=== PATIENT | male | born 1965 | race Caucasian/White ===

== ENCOUNTER 2017-05-08 16:32 | Emergency (ER) | payer MEDICARE, MEDICAID ==
[~2017-05-08] VITALS: Ht 175.3 cm; Wt 72.7 kg
[2017-05-08] MEDS ORDERED: METO-323 PO (16:53)
[2017-05-08] MEDS ORDERED: CLON1 PO (16:53)
[2017-05-08] MEDS ORDERED: RANI150T7 PO (16:53)
[2017-05-08] MEDS ORDERED: TAMS0.4C32 PO (16:53)
[2017-05-08] MEDS ORDERED: LOVA20 PO (16:53)
[2017-05-08] MEDS ORDERED: OLAN7.5T2 PO (16:53)
[2017-05-08] MEDS ORDERED: ZOLP10 PO (16:53)
[2017-05-08] MEDS ORDERED: MONT10TA21 PO (16:53)
[2017-05-08] MEDS ORDERED: FINA5TAB41 PO (16:53)
[2017-05-08 17:41] LABS: BASOPHILS % (AUTO) 0.3 % (0.0-2.0); EOSINOPHILS % (AUTO) 0.9 % (1.0-6.0); HEMATOCRIT 49.9 % (41-53); HEMOGLOBIN 16.3 g/dL (13.5-17.5); LYMPHOCYTES # (AUTO) 1.1 K/uL (1.0-4.8); LYMPHOCYTES % (AUTO) 20.2 % (22.0-44.0); MEAN CORPUSCULAR HEMOGLOBIN 31.1 pg (26.0-34.0); MEAN CORPUSCULAR HGB CONC 32.7 G/dL (31.0-37.0); MEAN CORPUSCULAR VOLUME 95 fL (80-100); MONOCYTES # (AUTO) 0.5 K/uL (0.1-1.0); MONOCYTES % (AUTO) 9.4 % (2.0-9.0); NEUTROPHILS # (AUTO) 3.8 K/uL (1.8-7.7); NEUTROPHILS % (AUTO) 69.2 % (40.0-70.0); PLATELET COUNT (AUTO) 130 K/uL (150-450); RED BLOOD CELL COUNT(AUTO) 5.25 MIL/uL (4.50-5.90); RED CELL DISTRIBUTION WIDTH 14.7 % (11.5-14.5); WHITE BLOOD COUNT (AUTO) 5.5 K/uL (4.5-11.0)
[2017-05-08 17:48] LABS: ANION GAP 7 mmol/L (8-16); CALCIUM, TOTAL 9.7 mg/dL (8.8-10.5); CARBON DIOXIDE 31 mmol/L (22-29); CHLORIDE 106 mmol/L (98-107); CREATININE 1.35 mg/dL (0.60-1.30); GLOMERULAR FILTR. RATE CALC 56 mL/min (>60); POTASSIUM 4.7 mmol/L (3.5-5.1); SODIUM SERUM 144 mmol/L (136-145); UREA NITROGEN, BLOOD 7 mg/dL (7-18)
[2017-05-08 17:54] LABS: ALANINE AMINOTRANSFERASE 20 U/L (12-78); ALBUMIN 4.1 g/dL (3.4-5.0); ASPARTATE AMINOTRANSFERASE 18 U/L (15-37); BILIRUBIN,TOTAL 0.4 mg/dL (0.1-1.0); TOTAL PROTEIN, SERUM 7.5 g/dL (6.4-8.2)
[2017-05-08] MEDS ORDERED: LORazepam 2 MG TABLET PO ONE (19:45)
[2017-05-08] MEDS ORDERED: OLANZapine 5 MG TABLET PO ONE (19:45)
[2017-05-08] MEDS ORDERED: DiphenhydrAMINE HCL 25 MG CAPSULE PO ONE (19:45)
[2017-05-08 20:10] VITALS: BP 101/69
== END 2017-05-08 22:49 | disposition home or self-care (01) ==
LOC: EMS 16:34
DX: F91.8 Other conduct disorders (principal); F89 Unspecified disorder of psychological development; J45.909 Unspecified asthma, uncomplicated; I10 Essential (primary) hypertension; E78.00 Pure hypercholesterolemia, unspecified; K21.9 Gastro-esophageal reflux disease without esophagitis; F17.210 Nicotine dependence, cigarettes, uncomplicated; Z88.8 Allergy status to other drugs, medicaments and biological substances
CPT/HCPCS: 36415; 80053; 85025; 99284; G0480

== ENCOUNTER 2017-05-30 15:27 | Inpatient (IN) | payer MEDICARE, MEDICAID ==
[~2017-05-30] VITALS: Ht 172.7 cm; Wt 67.0 kg
[~2017-05-30 15:27] MED LIST: CLON1 PO; FINA5TAB41 PO; LOVA20 PO; METO25XL PO; MONT10TA21 PO; OLAN7.5T2 PO; RANI150T7 PO; TAMS0.4C32 PO; ZOLP10TA7 PO
[2017-05-30 16:51] LABS: BASOPHILS % (AUTO) 0.2 % (0.0-2.0); EOSINOPHILS % (AUTO) 1.7 % (1.0-6.0); HEMATOCRIT 43.2 % (41-53); HEMOGLOBIN 14.5 g/dL (13.5-17.5); LYMPHOCYTES # (AUTO) 1.1 K/uL (1.0-4.8); LYMPHOCYTES % (AUTO) 12.8 % (22.0-44.0); MEAN CORPUSCULAR HEMOGLOBIN 31.7 pg (26.0-34.0); MEAN CORPUSCULAR HGB CONC 33.7 G/dL (31.0-37.0); MEAN CORPUSCULAR VOLUME 94 fL (80-100); MONOCYTES # (AUTO) 0.6 K/uL (0.1-1.0); MONOCYTES % (AUTO) 7.1 % (2.0-9.0); NEUTROPHILS # (AUTO) 6.8 K/uL (1.8-7.7); NEUTROPHILS % (AUTO) 78.2 % (40.0-70.0); PLATELET COUNT (AUTO) 123 K/uL (150-450); RED BLOOD CELL COUNT(AUTO) 4.59 MIL/uL (4.50-5.90); RED CELL DISTRIBUTION WIDTH 14.7 % (11.5-14.5); WHITE BLOOD COUNT (AUTO) 8.6 K/uL (4.5-11.0)
[2017-05-30 17:00] LABS: ANION GAP 7 mmol/L (8-16); CALCIUM, TOTAL 8.6 mg/dL (8.8-10.5); CARBON DIOXIDE 28 mmol/L (22-29); CHLORIDE 109 mmol/L (98-107); CREATININE 1.05 mg/dL (0.60-1.30); GLOMERULAR FILTR. RATE CALC > 60 mL/min (>60); POTASSIUM 4.1 mmol/L (3.5-5.1); SODIUM SERUM 144 mmol/L (136-145); UREA NITROGEN, BLOOD 10 mg/dL (7-18)
[2017-05-30 17:06] LABS: ALANINE AMINOTRANSFERASE 15 U/L (12-78); ALBUMIN 3.3 g/dL (3.4-5.0); ASPARTATE AMINOTRANSFERASE 15 U/L (15-37); BILIRUBIN,TOTAL 0.4 mg/dL (0.1-1.0); TOTAL PROTEIN, SERUM 6.8 g/dL (6.4-8.2)
[2017-05-30] MEDS: OLANZapine 5 MG RAPDIS TABLET PO PRN (20:51)
[2017-05-30] MEDS: LORazepam 2 MG TABLET PO PRN (20:52)
[2017-05-30 21:49] VITALS: BP 123/77
[2017-05-31 08:15] VITALS: BP 108/65
[2017-05-31] MEDS: TAMSULOSIN HCL 0.4 MG CAPSULE PO SCH (08:47)
[2017-05-31] MEDS: FINASTERIDE 5 MG TABLET PO SCH (08:47)
[2017-05-31] MEDS: MONTELUKAST SODIUM 10 MG TABLET PO SCH (08:47)
[2017-05-31] MEDS: METOPROLOL SUCCINATE 25 MG ER TABLET PO SCH ×2 (08:47→16:34)
[2017-05-31] MEDS: RANITIDINE HCL 150 MG TABLET PO SCH ×2 (08:48→16:34)
[2017-05-31] MEDS: NICOTINE 21 MG/24 HOUR PATCH TD SCH (13:34)
[2017-05-31] MEDS: LOVASTATIN 20 MG TABLET PO SCH (16:34)
[2017-05-31 16:52] VITALS: BP 117/71
[2017-05-31] MEDS: DiphenhydrAMINE HCL 25 MG CAPSULE PO SCH (17:04)
[2017-05-31] MEDS: PALIPERIDONE 3 MG ER TABLET PO SCH (17:27)
[2017-06-01 01:38] VITALS: BP 113/62
[2017-06-01] MEDS: ZOLPIDEM TARTRATE 10 MG TABLET PO PRN (01:44)
[2017-06-01] MEDS: LORazepam 2 MG TABLET PO PRN (01:44)
[2017-06-01 08:15] VITALS: BP 118/68
[2017-06-01] MEDS: PALIPERIDONE 3 MG ER TABLET PO SCH ×2 (08:38→17:02)
[2017-06-01] MEDS: MONTELUKAST SODIUM 10 MG TABLET PO SCH (08:38)
[2017-06-01] MEDS: RANITIDINE HCL 150 MG TABLET PO SCH ×2 (08:39→17:02)
[2017-06-01] MEDS: FINASTERIDE 5 MG TABLET PO SCH (08:39)
[2017-06-01] MEDS: TAMSULOSIN HCL 0.4 MG CAPSULE PO SCH (08:39)
[2017-06-01] MEDS: DiphenhydrAMINE HCL 25 MG CAPSULE PO SCH ×2 (08:39→17:02)
[2017-06-01] MEDS: METOPROLOL SUCCINATE 25 MG ER TABLET PO SCH ×2 (08:39→17:02)
[2017-06-01] MEDS: NICOTINE 21 MG/24 HOUR PATCH TD SCH (08:39)
[2017-06-01] MEDS: LOVASTATIN 20 MG TABLET PO SCH (17:02)
[2017-06-01 17:43] VITALS: BP 133/89
[2017-06-02 05:15] VITALS: BP 118/76
[2017-06-02] MEDS: OLANZapine 5 MG RAPDIS TABLET PO PRN (05:36)
[2017-06-02] MEDS: DiphenhydrAMINE HCL 25 MG CAPSULE PO SCH ×2 (08:06→17:24)
[2017-06-02] MEDS: PALIPERIDONE 3 MG ER TABLET PO SCH (08:06)
[2017-06-02] MEDS: TAMSULOSIN HCL 0.4 MG CAPSULE PO SCH (08:06)
[2017-06-02] MEDS: NICOTINE 21 MG/24 HOUR PATCH TD SCH (08:07)
[2017-06-02] MEDS: FINASTERIDE 5 MG TABLET PO SCH (08:07)
[2017-06-02] MEDS: RANITIDINE HCL 150 MG TABLET PO SCH ×2 (08:07→17:25)
[2017-06-02] MEDS: METOPROLOL SUCCINATE 25 MG ER TABLET PO SCH ×2 (08:07→17:25)
[2017-06-02] MEDS: MONTELUKAST SODIUM 10 MG TABLET PO SCH (08:07)
[2017-06-02 08:40] VITALS: BP 118/87
[2017-06-02 16:41] VITALS: BP 98/68
[2017-06-02] MEDS: PALIPERIDONE 6 MG ER TABLET PO SCH (17:24)
[2017-06-02] MEDS: LOVASTATIN 20 MG TABLET PO SCH (17:26)
[2017-06-02] MEDS: LORazepam 2 MG TABLET PO PRN (18:13)
[2017-06-03 06:51] LABS: BASOPHILS % (AUTO) 0.5 % (0.0-2.0); EOSINOPHILS % (AUTO) 3.6 % (1.0-6.0); HEMATOCRIT 45.4 % (41-53); HEMOGLOBIN 15.4 g/dL (13.5-17.5); LYMPHOCYTES % (AUTO) 27.3 % (22.0-44.0); MEAN CORPUSCULAR HEMOGLOBIN 31.9 pg (26.0-34.0); MEAN CORPUSCULAR VOLUME 94 fL (80-100); MONOCYTES # (AUTO) 0.4 K/uL (0.1-1.0); MONOCYTES % (AUTO) 5.8 % (2.0-9.0); NEUTROPHILS # (AUTO) 4.7 K/uL (1.8-7.7); NEUTROPHILS % (AUTO) 62.8 % (40.0-70.0); PLATELET COUNT (AUTO) 148 K/uL (150-450); RED BLOOD CELL COUNT(AUTO) 4.83 MIL/uL (4.50-5.90); RED CELL DISTRIBUTION WIDTH 14.6 % (11.5-14.5); WHITE BLOOD COUNT (AUTO) 7.5 K/uL (4.5-11.0)
[2017-06-03 07:28] LABS: CHOL/HDL RATIO 4.1 (4.2-7.3); CREATINE KINASE, TOTAL 52 U/L (39-308)
[2017-06-03 08:05] LABS: HEMOGLOBIN A1C 5.9 % (4.5-6.2)
[2017-06-03] MEDS: FINASTERIDE 5 MG TABLET PO SCH (08:22)
[2017-06-03] MEDS: DiphenhydrAMINE HCL 25 MG CAPSULE PO SCH ×2 (08:22→16:43)
[2017-06-03] MEDS: TAMSULOSIN HCL 0.4 MG CAPSULE PO SCH (08:22)
[2017-06-03] MEDS: RANITIDINE HCL 150 MG TABLET PO SCH ×2 (08:22→16:43)
[2017-06-03] MEDS: PALIPERIDONE 6 MG ER TABLET PO SCH ×2 (08:22→16:43)
[2017-06-03] MEDS: MONTELUKAST SODIUM 10 MG TABLET PO SCH (08:23)
[2017-06-03 08:44] VITALS: BP 87/59
[2017-06-03] MEDS: NICOTINE 21 MG/24 HOUR PATCH TD SCH (09:00)
[2017-06-03 16:19] VITALS: BP 100/80
[2017-06-03] MEDS: LOVASTATIN 20 MG TABLET PO SCH (16:43)
[2017-06-04] MEDS: ZOLPIDEM TARTRATE 10 MG TABLET PO PRN (00:58)
[2017-06-04 06:31] LABS: HEPATITIS Bs ANTIGEN SCREEN P Negative (Negative); HEPATITIS C AB SCREEN 0.1 s/co ratio (0.0-0.9)
[2017-06-04] MEDS: FINASTERIDE 5 MG TABLET PO SCH (08:04)
[2017-06-04] MEDS: TAMSULOSIN HCL 0.4 MG CAPSULE PO SCH (08:04)
[2017-06-04] MEDS: NICOTINE 21 MG/24 HOUR PATCH TD SCH (08:04)
[2017-06-04] MEDS: PALIPERIDONE 6 MG ER TABLET PO SCH ×2 (08:04→16:26)
[2017-06-04] MEDS: MONTELUKAST SODIUM 10 MG TABLET PO SCH (08:04)
[2017-06-04] MEDS: DiphenhydrAMINE HCL 25 MG CAPSULE PO SCH ×2 (08:04→16:26)
[2017-06-04] MEDS: RANITIDINE HCL 150 MG TABLET PO SCH ×2 (08:04→16:26)
[2017-06-04 08:24] VITALS: BP 111/80
[2017-06-04] MEDS: LORazepam 2 MG TABLET PO PRN (14:35)
[2017-06-04] MEDS: LOVASTATIN 20 MG TABLET PO SCH (16:38)
[2017-06-04 20:23] VITALS: BP 106/62
[2017-06-05] MEDS: PALIPERIDONE 6 MG ER TABLET PO SCH ×2 (08:59→17:08)
[2017-06-05] MEDS: FINASTERIDE 5 MG TABLET PO SCH (08:59)
[2017-06-05] MEDS: DiphenhydrAMINE HCL 25 MG CAPSULE PO SCH ×2 (08:59→17:08)
[2017-06-05] MEDS: TAMSULOSIN HCL 0.4 MG CAPSULE PO SCH (09:00)
[2017-06-05] MEDS: BENZTROPINE MESYLATE 0.5 MG TABLET PO SCH ×2 (09:00→17:08)
[2017-06-05] MEDS: NICOTINE 21 MG/24 HOUR PATCH TD SCH (09:00)
[2017-06-05] MEDS: MONTELUKAST SODIUM 10 MG TABLET PO SCH (09:00)
[2017-06-05] MEDS: RANITIDINE HCL 150 MG TABLET PO SCH ×2 (09:00→17:08)
[2017-06-05 09:19] VITALS: BP 118/69
[2017-06-05 16:55] VITALS: BP 132/72
[2017-06-05] MEDS: LOVASTATIN 20 MG TABLET PO SCH (17:08)
[2017-06-06 08:24] VITALS: BP 116/66
[2017-06-06] MEDS: PALIPERIDONE 6 MG ER TABLET PO SCH ×2 (08:46→16:19)
[2017-06-06] MEDS: DiphenhydrAMINE HCL 25 MG CAPSULE PO SCH ×2 (08:46→16:19)
[2017-06-06] MEDS: TAMSULOSIN HCL 0.4 MG CAPSULE PO SCH (08:47)
[2017-06-06] MEDS: BENZTROPINE MESYLATE 0.5 MG TABLET PO SCH ×2 (08:47→16:19)
[2017-06-06] MEDS: FINASTERIDE 5 MG TABLET PO SCH (08:48)
[2017-06-06] MEDS: MONTELUKAST SODIUM 10 MG TABLET PO SCH (08:49)
[2017-06-06] MEDS: RANITIDINE HCL 150 MG TABLET PO SCH ×2 (08:49→16:19)
[2017-06-06] MEDS: NICOTINE 21 MG/24 HOUR PATCH TD SCH (08:55)
[2017-06-06] MEDS ORDERED: DiphenhydrAMINE HCL 50 MG/ML VIAL ONE (12:11)
[2017-06-06] MEDS ORDERED: LORazepam 2 MG/ML VIAL ONE (12:11)
[2017-06-06] MEDS ORDERED: DiphenhydrAMINE HCL 50 MG/ML VIAL IM ONE (12:30)
[2017-06-06] MEDS ORDERED: LORazepam 2 MG/ML VIAL IM ONE (12:30)
[2017-06-06] MEDS: LOVASTATIN 20 MG TABLET PO SCH (16:19)
[2017-06-06 17:12] VITALS: BP 104/84
[2017-06-07 08:23] VITALS: BP 110/62
[2017-06-07] MEDS: PALIPERIDONE 6 MG ER TABLET PO SCH ×2 (10:33→16:25)
[2017-06-07] MEDS: RANITIDINE HCL 150 MG TABLET PO SCH ×2 (10:33→16:25)
[2017-06-07] MEDS: NICOTINE 21 MG/24 HOUR PATCH TD SCH (10:33)
[2017-06-07] MEDS: FINASTERIDE 5 MG TABLET PO SCH (10:34)
[2017-06-07] MEDS: TAMSULOSIN HCL 0.4 MG CAPSULE PO SCH (10:34)
[2017-06-07] MEDS: DiphenhydrAMINE HCL 25 MG CAPSULE PO SCH ×2 (10:34→16:25)
[2017-06-07] MEDS: MONTELUKAST SODIUM 10 MG TABLET PO SCH (10:34)
[2017-06-07] MEDS: LOVASTATIN 20 MG TABLET PO SCH (16:25)
[2017-06-07 20:00] VITALS: BP 104/74
[2017-06-08 08:20] VITALS: BP 109/71
[2017-06-08] MEDS: PALIPERIDONE 6 MG ER TABLET PO SCH ×2 (08:40→16:36)
[2017-06-08] MEDS: TAMSULOSIN HCL 0.4 MG CAPSULE PO SCH (08:40)
[2017-06-08] MEDS: FINASTERIDE 5 MG TABLET PO SCH (08:41)
[2017-06-08] MEDS: DiphenhydrAMINE HCL 25 MG CAPSULE PO SCH ×2 (08:41→16:36)
[2017-06-08] MEDS: MONTELUKAST SODIUM 10 MG TABLET PO SCH (08:41)
[2017-06-08] MEDS: RANITIDINE HCL 150 MG TABLET PO SCH ×2 (08:41→16:36)
[2017-06-08] MEDS: NICOTINE 21 MG/24 HOUR PATCH TD SCH (08:45)
[2017-06-08 16:25] VITALS: BP 113/79
[2017-06-08] MEDS: LOVASTATIN 20 MG TABLET PO SCH (16:36)
[2017-06-09 06:55] VITALS: BP 110/80
[2017-06-09 08:15] VITALS: BP 118/76
[2017-06-09] MEDS: PALIPERIDONE 6 MG ER TABLET PO SCH ×2 (08:36→16:18)
[2017-06-09] MEDS: DiphenhydrAMINE HCL 25 MG CAPSULE PO SCH ×2 (08:36→16:18)
[2017-06-09] MEDS: TAMSULOSIN HCL 0.4 MG CAPSULE PO SCH (08:36)
[2017-06-09] MEDS: FINASTERIDE 5 MG TABLET PO SCH (08:36)
[2017-06-09] MEDS: MONTELUKAST SODIUM 10 MG TABLET PO SCH (08:37)
[2017-06-09] MEDS: NICOTINE 21 MG/24 HOUR PATCH TD SCH (08:37)
[2017-06-09] MEDS: RANITIDINE HCL 150 MG TABLET PO SCH ×2 (08:37→16:18)
[2017-06-09] MEDS ORDERED: BISACODYL 5 MG EC TABLET PO PRN (12:30)
[2017-06-09] MEDS: LOVASTATIN 20 MG TABLET PO SCH (16:18)
[2017-06-09 17:18] VITALS: BP 148/84
[2017-06-10 02:54] VITALS: BP 143/89
[2017-06-10] MEDS: LORazepam 2 MG TABLET PO PRN ×2 (03:01→10:24)
[2017-06-10] MEDS: TAMSULOSIN HCL 0.4 MG CAPSULE PO SCH (09:20)
[2017-06-10] MEDS: FINASTERIDE 5 MG TABLET PO SCH (09:20)
[2017-06-10] MEDS: PALIPERIDONE 6 MG ER TABLET PO SCH ×2 (09:20→16:59)
[2017-06-10] MEDS: NICOTINE 21 MG/24 HOUR PATCH TD SCH (09:20)
[2017-06-10] MEDS: RANITIDINE HCL 150 MG TABLET PO SCH ×2 (09:20→16:59)
[2017-06-10] MEDS: DiphenhydrAMINE HCL 25 MG CAPSULE PO SCH ×2 (09:20→16:59)
[2017-06-10] MEDS: MONTELUKAST SODIUM 10 MG TABLET PO SCH (09:21)
[2017-06-10 09:29] VITALS: BP 122/81
[2017-06-10] MEDS: OLANZapine 5 MG RAPDIS TABLET PO PRN (10:25)
[2017-06-10 16:38] VITALS: BP 106/69
[2017-06-10] MEDS: LOVASTATIN 20 MG TABLET PO SCH (17:16)
[2017-06-11] MEDS: PALIPERIDONE 6 MG ER TABLET PO SCH ×2 (08:13→16:17)
[2017-06-11] MEDS: NICOTINE 21 MG/24 HOUR PATCH TD SCH (08:13)
[2017-06-11] MEDS: MONTELUKAST SODIUM 10 MG TABLET PO SCH (08:14)
[2017-06-11] MEDS: FINASTERIDE 5 MG TABLET PO SCH (08:14)
[2017-06-11] MEDS: TAMSULOSIN HCL 0.4 MG CAPSULE PO SCH (08:14)
[2017-06-11] MEDS: DiphenhydrAMINE HCL 25 MG CAPSULE PO SCH ×2 (08:14→16:17)
[2017-06-11] MEDS: RANITIDINE HCL 150 MG TABLET PO SCH ×2 (08:14→16:17)
[2017-06-11] MEDS ORDERED: PALIPERIDONE PALMITATE 234 MG/1.5 ML SYRINGE IM SCH (09:00)
[2017-06-11 10:47] VITALS: BP 116/64
[2017-06-11] MEDS ORDERED: BISMUTH SUBSALICYLATE 262 MG CHEWABLE TABLET CHEW PRN (11:00)
[2017-06-11] MEDS: LOVASTATIN 20 MG TABLET PO SCH (17:34)
[2017-06-11 19:43] VITALS: BP 115/76
[2017-06-11] MEDS: LORazepam 2 MG TABLET PO PRN (20:22)
[2017-06-12] MEDS ORDERED: DIPH25 PO (08:01)
[2017-06-12] MEDS ORDERED: PALI234D IM (08:02)
[2017-06-12] MEDS ORDERED: PALI6 PO (08:02)
[2017-06-12] MEDS: NICOTINE 21 MG/24 HOUR PATCH TD SCH (08:34)
[2017-06-12] MEDS: MONTELUKAST SODIUM 10 MG TABLET PO SCH (08:34)
[2017-06-12] MEDS: TAMSULOSIN HCL 0.4 MG CAPSULE PO SCH (08:34)
[2017-06-12] MEDS: DiphenhydrAMINE HCL 25 MG CAPSULE PO SCH ×2 (08:34→16:17)
[2017-06-12] MEDS: FINASTERIDE 5 MG TABLET PO SCH (08:34)
[2017-06-12] MEDS: RANITIDINE HCL 150 MG TABLET PO SCH ×2 (08:34→16:16)
[2017-06-12] MEDS: PALIPERIDONE 6 MG ER TABLET PO SCH ×2 (08:34→16:16)
[2017-06-12 09:44] VITALS: BP 102/69
[2017-06-12 18:19] VITALS: BP 118/84
[2017-06-12] MEDS: LOVASTATIN 20 MG TABLET PO SCH (19:40)
[2017-06-12] MEDS: LORazepam 2 MG TABLET PO PRN (21:26)
[2017-06-13 08:36] VITALS: BP 88/65
[2017-06-13] MEDS: MONTELUKAST SODIUM 10 MG TABLET PO SCH (09:26)
[2017-06-13] MEDS: LORazepam 2 MG TABLET PO PRN (09:26)
[2017-06-13] MEDS: PALIPERIDONE 6 MG ER TABLET PO SCH ×2 (09:26→17:17)
[2017-06-13] MEDS: DiphenhydrAMINE HCL 25 MG CAPSULE PO SCH ×2 (09:26→17:17)
[2017-06-13] MEDS: NICOTINE 21 MG/24 HOUR PATCH TD SCH (09:26)
[2017-06-13] MEDS: TAMSULOSIN HCL 0.4 MG CAPSULE PO SCH (09:26)
[2017-06-13] MEDS: RANITIDINE HCL 150 MG TABLET PO SCH ×2 (09:26→17:17)
[2017-06-13] MEDS: FINASTERIDE 5 MG TABLET PO SCH (09:26)
[2017-06-13] MEDS: OLANZapine 5 MG RAPDIS TABLET PO PRN (09:26)
[2017-06-13 17:00] VITALS: BP 98/59
[2017-06-13] MEDS: LOVASTATIN 20 MG TABLET PO SCH (17:35)
[2017-06-14] MEDS: FINASTERIDE 5 MG TABLET PO SCH (08:09)
[2017-06-14] MEDS: RANITIDINE HCL 150 MG TABLET PO SCH ×2 (08:09→17:00)
[2017-06-14] MEDS: DiphenhydrAMINE HCL 25 MG CAPSULE PO SCH ×2 (08:09→17:00)
[2017-06-14] MEDS: TAMSULOSIN HCL 0.4 MG CAPSULE PO SCH (08:09)
[2017-06-14] MEDS: PALIPERIDONE 6 MG ER TABLET PO SCH ×2 (08:09→17:00)
[2017-06-14] MEDS: MONTELUKAST SODIUM 10 MG TABLET PO SCH (08:09)
[2017-06-14 08:10] VITALS: BP 114/68
[2017-06-14] MEDS: NICOTINE 21 MG/24 HOUR PATCH TD SCH (08:17)
[2017-06-14] MEDS: LOVASTATIN 20 MG TABLET PO SCH (17:30)
[2017-06-14 18:40] VITALS: BP 123/84
[2017-06-15] MEDS: FINASTERIDE 5 MG TABLET PO SCH (08:12)
[2017-06-15] MEDS: PALIPERIDONE 6 MG ER TABLET PO SCH ×2 (08:12→17:23)
[2017-06-15] MEDS: RANITIDINE HCL 150 MG TABLET PO SCH ×2 (08:12→17:23)
[2017-06-15] MEDS: NICOTINE 21 MG/24 HOUR PATCH TD SCH (08:12)
[2017-06-15] MEDS: DiphenhydrAMINE HCL 25 MG CAPSULE PO SCH ×2 (08:12→17:31)
[2017-06-15] MEDS: TAMSULOSIN HCL 0.4 MG CAPSULE PO SCH (08:12)
[2017-06-15] MEDS: MONTELUKAST SODIUM 10 MG TABLET PO SCH (08:12)
[2017-06-15 08:40] VITALS: BP 134/92
[2017-06-15 16:39] VITALS: BP 123/87
[2017-06-15] MEDS: LOVASTATIN 20 MG TABLET PO SCH (17:23)
[2017-06-16] MEDS: TAMSULOSIN HCL 0.4 MG CAPSULE PO SCH (08:17)
[2017-06-16] MEDS: RANITIDINE HCL 150 MG TABLET PO SCH ×2 (08:17→17:51)
[2017-06-16] MEDS: NICOTINE 21 MG/24 HOUR PATCH TD SCH (08:17)
[2017-06-16] MEDS: PALIPERIDONE 6 MG ER TABLET PO SCH ×2 (08:17→17:51)
[2017-06-16] MEDS: DiphenhydrAMINE HCL 25 MG CAPSULE PO SCH ×2 (08:17→17:51)
[2017-06-16] MEDS: MONTELUKAST SODIUM 10 MG TABLET PO SCH (08:17)
[2017-06-16] MEDS: FINASTERIDE 5 MG TABLET PO SCH (08:17)
[2017-06-16 09:15] VITALS: BP 107/75
[2017-06-16 16:00] VITALS: BP 108/68
[2017-06-16] MEDS: LOVASTATIN 20 MG TABLET PO SCH (17:51)
[2017-06-17 08:00] VITALS: BP 99/60
[2017-06-17] MEDS: RANITIDINE HCL 150 MG TABLET PO SCH (08:04)
[2017-06-17] MEDS: TAMSULOSIN HCL 0.4 MG CAPSULE PO SCH (08:04)
[2017-06-17] MEDS: PALIPERIDONE 6 MG ER TABLET PO SCH (08:04)
[2017-06-17] MEDS: DiphenhydrAMINE HCL 25 MG CAPSULE PO SCH (08:04)
[2017-06-17] MEDS: MONTELUKAST SODIUM 10 MG TABLET PO SCH (08:05)
[2017-06-17] MEDS: FINASTERIDE 5 MG TABLET PO SCH (08:05)
[2017-06-17] MEDS: NICOTINE 21 MG/24 HOUR PATCH TD SCH (08:05)
[2017-06-18] MEDS ORDERED: PANTOPRAZOLE SODIUM 40 MG DR TABLET PO SCH (09:00)
== END 2017-06-17 13:45 | disposition home or self-care (01) | DRG 885 ==
LOC: EMS 15:29 → 3EX 20:00
PROVIDERS: ADMIT Psychiatry & Neurology Psychiatry; ATTEND Psychiatry & Neurology Psychiatry
DX: F20.0 Paranoid schizophrenia (principal); D69.6 Thrombocytopenia, unspecified; E78.5 Hyperlipidemia, unspecified; F17.200 Nicotine dependence, unspecified, uncomplicated; F32.9 Major depressive disorder, single episode, unspecified; I10 Essential (primary) hypertension; J44.9 Chronic obstructive pulmonary disease, unspecified; K21.9 Gastro-esophageal reflux disease without esophagitis; K27.9 Peptic ulcer, site unspecified, unspecified as acute or chronic, without hemorrhage or perforation; K59.00 Constipation, unspecified; N40.0 Benign prostatic hyperplasia without lower urinary tract symptoms; R63.1 Polydipsia; Z87.11 Personal history of peptic ulcer disease; Z91.19 Patient's noncompliance with other medical treatment and regimen; Z88.8 Allergy status to other drugs, medicaments and biological substances
CPT/HCPCS: 80074; 82306; 82607; 82746; 83036; 83735; 84439; 99285; G0480; J1200; J2060; J3230

== ENCOUNTER 2017-06-17 16:03 | Emergency (ER) | payer MEDICARE, MEDICAID ==
[~2017-06-17] VITALS: Ht 175.3 cm; Wt 47.0 kg
[~2017-06-17 16:03] MED LIST changes: -CLON1 PO; +DIPH25 PO; -METO25XL PO; -OLAN7.5T2 PO; +PALI234D IM; +PALI6 PO; -ZOLP10TA7 PO
[2017-06-17 16:30] VITALS: BP 119/85
== END 2017-06-17 18:54 | disposition home or self-care (01) ==
LOC: EMS 16:05
DX: R42 Dizziness and giddiness (principal); J45.909 Unspecified asthma, uncomplicated; K21.9 Gastro-esophageal reflux disease without esophagitis; E78.00 Pure hypercholesterolemia, unspecified; I10 Essential (primary) hypertension; F17.210 Nicotine dependence, cigarettes, uncomplicated; Z88.8 Allergy status to other drugs, medicaments and biological substances; Z02.89 Encounter for other administrative examinations
CPT/HCPCS: 99283

== ENCOUNTER 2017-06-18 09:41 | Inpatient (IN) | payer MEDICARE, MEDICAID ==
[~2017-06-18] VITALS: Ht 175.3 cm; Wt 67.7 kg
[2017-06-18 10:56] LABS: BASOPHILS % (AUTO) 0.4 % (0.0-2.0); EOSINOPHILS % (AUTO) 0.2 % (1.0-6.0); HEMATOCRIT 46.3 % (41-53); HEMOGLOBIN 15.7 g/dL (13.5-17.5); LYMPHOCYTES % (AUTO) 10.7 % (22.0-44.0); MEAN CORPUSCULAR HEMOGLOBIN 31.5 pg (26.0-34.0); MEAN CORPUSCULAR HGB CONC 33.9 G/dL (31.0-37.0); MEAN CORPUSCULAR VOLUME 93 fL (80-100); MONOCYTES # (AUTO) 0.5 K/uL (0.1-1.0); MONOCYTES % (AUTO) 5.8 % (2.0-9.0); NEUTROPHILS # (AUTO) 7.5 K/uL (1.8-7.7); NEUTROPHILS % (AUTO) 82.9 % (40.0-70.0); PLATELET COUNT (AUTO) 159 K/uL (150-450); RED BLOOD CELL COUNT(AUTO) 4.99 MIL/uL (4.50-5.90); RED CELL DISTRIBUTION WIDTH 14.4 % (11.5-14.5)
[2017-06-18 11:07] LABS: ANION GAP 8 mmol/L (8-16); CALCIUM, TOTAL 9.2 mg/dL (8.8-10.5); CARBON DIOXIDE 30 mmol/L (22-29); CHLORIDE 102 mmol/L (98-107); GLOMERULAR FILTR. RATE CALC > 60 mL/min (>60); GLUCOSE,RANDOM 89 mg/dL (70-110); POTASSIUM 3.8 mmol/L (3.5-5.1); SODIUM SERUM 140 mmol/L (136-145); UREA NITROGEN, BLOOD 15 mg/dL (7-18)
[2017-06-18 11:13] LABS: ALANINE AMINOTRANSFERASE 36 U/L (12-78); ALKALINE PHOSPHATASE 115 U/L (46-116); ASPARTATE AMINOTRANSFERASE 81 U/L (15-37); BILIRUBIN,TOTAL 0.9 mg/dL (0.1-1.0); TOTAL PROTEIN, SERUM 7.7 g/dL (6.4-8.2)
[2017-06-18 11:55] LABS: THYROID STIMULATING HORMONE 1.71 uIU/mL (0.36-3.74)
[2017-06-18] MEDS ORDERED: BENZTROPINE MESYLATE 1 MG/ML 2 ML VIAL IM ONE (12:00)
[2017-06-18 13:49] LABS: AMPHET/METH SCREEN,URINE NEGATIVE (NEGATIVE); BARBITURATE SCREEN, URINE NEGATIVE (NEGATIVE); BENZODIAZEPINES SCREEN,URINE NEGATIVE (NEGATIVE); CANNABINOID SCREEN,URINE NEGATIVE (NEGATIVE); COCAINE SCREEN,URINE NEGATIVE (NEGATIVE); METHADONE SCREEN, URINE NEGATIVE (NEGATIVE); OPIATE SCREEN,URINE NEGATIVE (NEGATIVE)
[2017-06-18 13:52] LABS: PHENCYCLIDINE SCREEN,URINE NEGATIVE (NEGATIVE)
[2017-06-18 14:19] LABS: APPEARANCE,URINE CLEAR (CLEAR); BILIRUBIN,URINE NEGATIVE (NEGATIVE); GLUCOSE, URINE (UA) NEGATIVE (NEGATIVE); KETONES,URINE 40 mg/dL (NEGATIVE); LEUKOCYTE ESTERASE ,URINE NEGATIVE (NEGATIVE); NITRATE,URINE NEGATIVE (NEGATIVE); OCCULT BLOOD,URINE NEGATIVE (NEGATIVE); PROTEIN,URINE NEGATIVE (NEGATIVE); UROBILINOGEN,URINE 0.2 mg/dL (<=1.0)
[2017-06-18] MEDS: DiphenhydrAMINE HCL 25 MG CAPSULE PO SCH (16:14)
[2017-06-18] MEDS ORDERED: DiphenhydrAMINE HCL 25 MG CAPSULE PO ONE (17:45)
[2017-06-18] MEDS ORDERED: HALOPERIDOL 10 MG TABLET PO ONE (17:45)
[2017-06-18] MEDS: OLANZapine 5 MG RAPDIS TABLET PO PRN (17:56)
[2017-06-18] MEDS ORDERED: PNEUMOCOCCAL VACCINE POLYVALENT 0.5 ML VIAL [PPSV23] IM ONE (19:30)
[2017-06-18] MEDS: PALIPERIDONE 6 MG ER TABLET PO SCH (20:54)
[2017-06-18 21:41] VITALS: BP 127/70
[2017-06-19 06:55] VITALS: BP 105/71
[2017-06-19] MEDS: DiphenhydrAMINE HCL 25 MG CAPSULE PO SCH ×2 (08:15→16:37)
[2017-06-19] MEDS: PALIPERIDONE 6 MG ER TABLET PO SCH ×2 (08:15→21:04)
[2017-06-19 10:37] VITALS: BP 103/68
[2017-06-19 16:04] VITALS: BP 113/70
[2017-06-19] MEDS: RANITIDINE HCL 150 MG TABLET PO SCH (16:37)
[2017-06-19] MEDS: LOVASTATIN 20 MG TABLET PO SCH (21:04)
[2017-06-19 23:50] VITALS: BP 102/62
[2017-06-19] MEDS: LORazepam 2 MG TABLET PO PRN (23:55)
[2017-06-19] MEDS: ZOLPIDEM TARTRATE 10 MG TABLET PO PRN (23:55)
[2017-06-20] MEDS: RANITIDINE HCL 150 MG TABLET PO SCH ×2 (08:44→17:08)
[2017-06-20] MEDS: LORazepam 2 MG TABLET PO PRN (08:44)
[2017-06-20] MEDS: TAMSULOSIN HCL 0.4 MG CAPSULE PO SCH (08:44)
[2017-06-20] MEDS: OLANZapine 5 MG RAPDIS TABLET PO PRN (08:44)
[2017-06-20] MEDS: FINASTERIDE 5 MG TABLET PO SCH (08:45)
[2017-06-20] MEDS: MONTELUKAST SODIUM 10 MG TABLET PO SCH (08:45)
[2017-06-20] MEDS: DiphenhydrAMINE HCL 25 MG CAPSULE PO SCH ×2 (08:46→17:08)
[2017-06-20] MEDS: PALIPERIDONE 6 MG ER TABLET PO SCH ×2 (09:24→20:28)
[2017-06-20 11:05] VITALS: BP 110/70
[2017-06-20 18:37] VITALS: BP 115/75
[2017-06-20] MEDS ORDERED: INSULIN ASPART 100 UNITS/ML SQ ONE (18:55)
[2017-06-20] MEDS: LOVASTATIN 20 MG TABLET PO SCH (20:28)
[2017-06-21 05:09] VITALS: BP 122/78
[2017-06-21] MEDS: DiphenhydrAMINE HCL 25 MG CAPSULE PO SCH ×2 (09:13→16:39)
[2017-06-21] MEDS: TAMSULOSIN HCL 0.4 MG CAPSULE PO SCH (09:13)
[2017-06-21] MEDS: PALIPERIDONE 6 MG ER TABLET PO SCH ×2 (09:13→21:22)
[2017-06-21] MEDS: RANITIDINE HCL 150 MG TABLET PO SCH ×2 (09:13→16:39)
[2017-06-21] MEDS: MONTELUKAST SODIUM 10 MG TABLET PO SCH (09:13)
[2017-06-21] MEDS: FINASTERIDE 5 MG TABLET PO SCH (09:13)
[2017-06-21 10:44] VITALS: BP 112/60
[2017-06-21] MEDS: OLANZapine 5 MG RAPDIS TABLET PO PRN (13:54)
[2017-06-21] MEDS: LORazepam 2 MG TABLET PO PRN (13:54)
[2017-06-21 16:06] VITALS: BP 110/74
[2017-06-21] MEDS: LOVASTATIN 20 MG TABLET PO SCH (21:22)
[2017-06-22 06:23] LABS: GLUCOMETER DEV NAME(LOC) 3EI B; GLUCOSE,POINT OF CARE 83 MG/DL (70-110)
[2017-06-22 06:43] LABS: BASOPHILS % (AUTO) 0.4 % (0.0-2.0); EOSINOPHILS % (AUTO) 3.6 % (1.0-6.0); HEMOGLOBIN 12.8 g/dL (13.5-17.5); LYMPHOCYTES # (AUTO) 1.6 K/uL (1.0-4.8); LYMPHOCYTES % (AUTO) 19.8 % (22.0-44.0); MEAN CORPUSCULAR HEMOGLOBIN 31.5 pg (26.0-34.0); MEAN CORPUSCULAR HGB CONC 33.6 G/dL (31.0-37.0); MEAN CORPUSCULAR VOLUME 94 fL (80-100); MONOCYTES # (AUTO) 0.4 K/uL (0.1-1.0); MONOCYTES % (AUTO) 5.2 % (2.0-9.0); NEUTROPHILS # (AUTO) 5.9 K/uL (1.8-7.7); PLATELET COUNT (AUTO) 124 K/uL (150-450); RED BLOOD CELL COUNT(AUTO) 4.06 MIL/uL (4.50-5.90); RED CELL DISTRIBUTION WIDTH 14.1 % (11.5-14.5)
[2017-06-22 06:48] LABS: ALANINE AMINOTRANSFERASE 26 U/L (12-78); ALBUMIN 3.1 g/dL (3.4-5.0); ALKALINE PHOSPHATASE 77 U/L (46-116); ANION GAP 5 mmol/L (8-16); ASPARTATE AMINOTRANSFERASE 33 U/L (15-37); BILIRUBIN,TOTAL 0.5 mg/dL (0.1-1.0); CALCIUM, TOTAL 8.8 mg/dL (8.8-10.5); CARBON DIOXIDE 30 mmol/L (22-29); CHLORIDE 106 mmol/L (98-107); CREATININE 0.89 mg/dL (0.60-1.30); GLOMERULAR FILTR. RATE CALC > 60 mL/min (>60); GLUCOSE,RANDOM 84 mg/dL (70-110); SODIUM SERUM 141 mmol/L (136-145); TOTAL PROTEIN, SERUM 6.1 g/dL (6.4-8.2); UREA NITROGEN, BLOOD 15 mg/dL (7-18)
[2017-06-22 06:59] LABS: VALPROIC ACID < 3 mcg/mL (50-100)
[2017-06-22 08:16] VITALS: BP 101/62
[2017-06-22] MEDS: TAMSULOSIN HCL 0.4 MG CAPSULE PO SCH (08:40)
[2017-06-22] MEDS: FINASTERIDE 5 MG TABLET PO SCH (08:41)
[2017-06-22] MEDS: DiphenhydrAMINE HCL 25 MG CAPSULE PO SCH ×2 (08:41→16:46)
[2017-06-22] MEDS: PALIPERIDONE 6 MG ER TABLET PO SCH ×2 (08:41→20:58)
[2017-06-22] MEDS: RANITIDINE HCL 150 MG TABLET PO SCH ×2 (08:41→16:46)
[2017-06-22] MEDS: MONTELUKAST SODIUM 10 MG TABLET PO SCH (08:41)
[2017-06-22 16:03] VITALS: BP 112/78
[2017-06-22] MEDS: LOVASTATIN 20 MG TABLET PO SCH (20:58)
[2017-06-23] MEDS: FINASTERIDE 5 MG TABLET PO SCH (08:04)
[2017-06-23] MEDS: MONTELUKAST SODIUM 10 MG TABLET PO SCH (08:04)
[2017-06-23] MEDS: PALIPERIDONE 6 MG ER TABLET PO SCH ×2 (08:04→21:27)
[2017-06-23] MEDS: RANITIDINE HCL 150 MG TABLET PO SCH ×2 (08:04→17:38)
[2017-06-23] MEDS: TAMSULOSIN HCL 0.4 MG CAPSULE PO SCH (08:04)
[2017-06-23] MEDS: DiphenhydrAMINE HCL 25 MG CAPSULE PO SCH ×2 (08:04→17:38)
[2017-06-23 08:10] VITALS: BP 144/88
[2017-06-23] MEDS: OLANZapine 5 MG RAPDIS TABLET PO PRN (08:38)
[2017-06-23] MEDS: LORazepam 2 MG TABLET PO PRN (08:38)
[2017-06-23 10:08] LABS: CREATINE KINASE, TOTAL 226 U/L (39-308)
[2017-06-23 10:13] LABS: CREATINE KINASE MB < 0.5 ng/mL (0-5)
[2017-06-23 16:00] VITALS: BP 129/78
[2017-06-23] MEDS: LOVASTATIN 20 MG TABLET PO SCH (21:27)
[2017-06-24 08:05] VITALS: BP 102/59
[2017-06-24] MEDS: MONTELUKAST SODIUM 10 MG TABLET PO SCH (09:53)
[2017-06-24] MEDS: PALIPERIDONE 6 MG ER TABLET PO SCH ×2 (09:53→20:37)
[2017-06-24] MEDS: RANITIDINE HCL 150 MG TABLET PO SCH ×2 (09:54→16:29)
[2017-06-24] MEDS: FINASTERIDE 5 MG TABLET PO SCH (09:54)
[2017-06-24] MEDS: DiphenhydrAMINE HCL 25 MG CAPSULE PO SCH ×2 (09:54→16:29)
[2017-06-24] MEDS: TAMSULOSIN HCL 0.4 MG CAPSULE PO SCH (09:54)
[2017-06-24 16:13] VITALS: BP 105/68
[2017-06-24] MEDS: LORazepam 2 MG TABLET PO PRN (17:12)
[2017-06-24] MEDS: LOVASTATIN 20 MG TABLET PO SCH (20:37)
[2017-06-24] MEDS: ZOLPIDEM TARTRATE 10 MG TABLET PO PRN (20:38)
[2017-06-25] MEDS ORDERED: ALBUTEROL SULFATE HFA 90 MCG/PUFF 8 GM INHALER IH PRN (08:30)
[2017-06-25] MEDS: FINASTERIDE 5 MG TABLET PO SCH (08:40)
[2017-06-25] MEDS: TAMSULOSIN HCL 0.4 MG CAPSULE PO SCH (08:40)
[2017-06-25] MEDS: MONTELUKAST SODIUM 10 MG TABLET PO SCH (08:40)
[2017-06-25] MEDS: DiphenhydrAMINE HCL 25 MG CAPSULE PO SCH ×2 (08:40→16:26)
[2017-06-25] MEDS: RANITIDINE HCL 150 MG TABLET PO SCH ×2 (08:40→16:26)
[2017-06-25] MEDS: PALIPERIDONE 6 MG ER TABLET PO SCH ×2 (08:40→20:11)
[2017-06-25 10:27] VITALS: BP 121/75
[2017-06-25 16:15] VITALS: BP 115/76
[2017-06-25] MEDS: OLANZapine 5 MG RAPDIS TABLET PO PRN (16:26)
[2017-06-25] MEDS: DIVALPROEX SODIUM 500 MG DR TABLET PO SCH (17:30)
[2017-06-25] MEDS: ZOLPIDEM TARTRATE 10 MG TABLET PO PRN (20:11)
[2017-06-25] MEDS: LOVASTATIN 20 MG TABLET PO SCH (20:11)
[2017-06-26] MEDS: TAMSULOSIN HCL 0.4 MG CAPSULE PO SCH (09:00)
[2017-06-26] MEDS: FINASTERIDE 5 MG TABLET PO SCH (09:00)
[2017-06-26] MEDS: DiphenhydrAMINE HCL 25 MG CAPSULE PO SCH ×2 (09:00→16:31)
[2017-06-26] MEDS: MONTELUKAST SODIUM 10 MG TABLET PO SCH (09:00)
[2017-06-26] MEDS: PALIPERIDONE 6 MG ER TABLET PO SCH ×2 (09:00→20:25)
[2017-06-26] MEDS: RANITIDINE HCL 150 MG TABLET PO SCH ×2 (09:00→16:31)
[2017-06-26] MEDS: DIVALPROEX SODIUM 500 MG DR TABLET PO SCH ×2 (09:00→16:30)
[2017-06-26 12:52] VITALS: BP 110/67
[2017-06-26 16:02] VITALS: BP 115/74
[2017-06-26] MEDS: OLANZapine 5 MG RAPDIS TABLET PO PRN (16:31)
[2017-06-26] MEDS: LOVASTATIN 20 MG TABLET PO SCH (20:25)
[2017-06-26] MEDS: ZOLPIDEM TARTRATE 10 MG TABLET PO PRN (20:26)
[2017-06-27 05:55] VITALS: BP 118/78
[2017-06-27 08:15] VITALS: BP 115/76
[2017-06-27] MEDS: TAMSULOSIN HCL 0.4 MG CAPSULE PO SCH (09:15)
[2017-06-27] MEDS: DiphenhydrAMINE HCL 25 MG CAPSULE PO SCH ×2 (09:15→16:17)
[2017-06-27] MEDS: MONTELUKAST SODIUM 10 MG TABLET PO SCH (09:15)
[2017-06-27] MEDS: RANITIDINE HCL 150 MG TABLET PO SCH ×2 (09:15→16:17)
[2017-06-27] MEDS: DIVALPROEX SODIUM 500 MG DR TABLET PO SCH ×2 (09:15→16:17)
[2017-06-27] MEDS: FINASTERIDE 5 MG TABLET PO SCH (09:15)
[2017-06-27] MEDS: PALIPERIDONE 6 MG ER TABLET PO SCH ×2 (09:15→20:21)
[2017-06-27] MEDS: OLANZapine 5 MG RAPDIS TABLET PO PRN (16:17)
[2017-06-27 16:48] VITALS: BP 112/75
[2017-06-27] MEDS: LOVASTATIN 20 MG TABLET PO SCH (20:21)
[2017-06-27] MEDS: ZOLPIDEM TARTRATE 10 MG TABLET PO PRN (20:22)
[2017-06-28] MEDS: LORazepam 2 MG TABLET PO PRN (00:27)
[2017-06-28 00:41] VITALS: BP 124/86
[2017-06-28 08:07] VITALS: BP 119/76
[2017-06-28] MEDS: TAMSULOSIN HCL 0.4 MG CAPSULE PO SCH (08:14)
[2017-06-28] MEDS: DiphenhydrAMINE HCL 25 MG CAPSULE PO SCH ×2 (08:14→17:04)
[2017-06-28] MEDS: FINASTERIDE 5 MG TABLET PO SCH (08:14)
[2017-06-28] MEDS: RANITIDINE HCL 150 MG TABLET PO SCH ×2 (08:14→17:04)
[2017-06-28] MEDS: PALIPERIDONE 6 MG ER TABLET PO SCH ×2 (08:14→20:14)
[2017-06-28] MEDS: MONTELUKAST SODIUM 10 MG TABLET PO SCH (08:14)
[2017-06-28] MEDS: DIVALPROEX SODIUM 500 MG DR TABLET PO SCH ×2 (08:14→17:04)
[2017-06-28 16:29] VITALS: BP 125/79
[2017-06-28] MEDS: LOVASTATIN 20 MG TABLET PO SCH (20:14)
[2017-06-28] MEDS: ZOLPIDEM TARTRATE 10 MG TABLET PO PRN (22:21)
[2017-06-29 06:07] VITALS: BP 106/76
[2017-06-29 06:23] LABS: BASOPHILS % (AUTO) 0.6 % (0.0-2.0); EOSINOPHILS % (AUTO) 3.5 % (1.0-6.0); HEMATOCRIT 41.4 % (41-53); HEMOGLOBIN 13.8 g/dL (13.5-17.5); LYMPHOCYTES # (AUTO) 2.1 K/uL (1.0-4.8); LYMPHOCYTES % (AUTO) 24.8 % (22.0-44.0); MEAN CORPUSCULAR HEMOGLOBIN 31.6 pg (26.0-34.0); MEAN CORPUSCULAR HGB CONC 33.4 G/dL (31.0-37.0); MEAN CORPUSCULAR VOLUME 95 fL (80-100); MONOCYTES # (AUTO) 0.6 K/uL (0.1-1.0); MONOCYTES % (AUTO) 7.1 % (2.0-9.0); NEUTROPHILS # (AUTO) 5.4 K/uL (1.8-7.7); PLATELET COUNT (AUTO) 147 K/uL (150-450); RED BLOOD CELL COUNT(AUTO) 4.36 MIL/uL (4.50-5.90); RED CELL DISTRIBUTION WIDTH 14.5 % (11.5-14.5)
[2017-06-29 07:03] LABS: ALANINE AMINOTRANSFERASE 20 U/L (12-78); ALBUMIN 3.2 g/dL (3.4-5.0); ALKALINE PHOSPHATASE 81 U/L (46-116); ANION GAP 10 mmol/L (8-16); ASPARTATE AMINOTRANSFERASE 14 U/L (15-37); BILIRUBIN,TOTAL 0.4 mg/dL (0.1-1.0); CALCIUM, TOTAL 9.2 mg/dL (8.8-10.5); CARBON DIOXIDE 32 mmol/L (22-29); CHLORIDE 106 mmol/L (98-107); CREATININE 1.09 mg/dL (0.60-1.30); GLOMERULAR FILTR. RATE CALC > 60 mL/min (>60); GLUCOSE,RANDOM 79 mg/dL (70-110); POTASSIUM 4.1 mmol/L (3.5-5.1); SODIUM SERUM 148 mmol/L (136-145); TOTAL PROTEIN, SERUM 6.4 g/dL (6.4-8.2); UREA NITROGEN, BLOOD 19 mg/dL (7-18); VALPROIC ACID 71 mcg/mL (50-100)
[2017-06-29] MEDS: MONTELUKAST SODIUM 10 MG TABLET PO SCH (08:05)
[2017-06-29] MEDS: TAMSULOSIN HCL 0.4 MG CAPSULE PO SCH (08:06)
[2017-06-29] MEDS: FINASTERIDE 5 MG TABLET PO SCH (08:06)
[2017-06-29] MEDS: DIVALPROEX SODIUM 500 MG DR TABLET PO SCH ×2 (08:06→21:38)
[2017-06-29] MEDS: RANITIDINE HCL 150 MG TABLET PO SCH ×2 (08:06→21:38)
[2017-06-29] MEDS: PALIPERIDONE 6 MG ER TABLET PO SCH ×2 (08:06→21:38)
[2017-06-29] MEDS: DiphenhydrAMINE HCL 25 MG CAPSULE PO SCH ×2 (08:06→21:38)
[2017-06-29 08:29] VITALS: BP 103/66
[2017-06-29 18:50] VITALS: BP 113/67
[2017-06-29] MEDS: LOVASTATIN 20 MG TABLET PO SCH (23:03)
[2017-06-30] MEDS: DIVALPROEX SODIUM 500 MG DR TABLET PO SCH ×2 (08:10→16:35)
[2017-06-30] MEDS: PALIPERIDONE 6 MG ER TABLET PO SCH ×2 (08:10→20:49)
[2017-06-30] MEDS: DiphenhydrAMINE HCL 25 MG CAPSULE PO SCH ×2 (08:11→16:36)
[2017-06-30] MEDS: FINASTERIDE 5 MG TABLET PO SCH (08:11)
[2017-06-30] MEDS: RANITIDINE HCL 150 MG TABLET PO SCH ×2 (08:11→16:35)
[2017-06-30] MEDS: MONTELUKAST SODIUM 10 MG TABLET PO SCH (08:11)
[2017-06-30] MEDS: TAMSULOSIN HCL 0.4 MG CAPSULE PO SCH (08:11)
[2017-06-30 10:29] VITALS: BP 114/68
[2017-06-30 16:36] VITALS: BP 100/65
[2017-06-30] MEDS: LORazepam 2 MG TABLET PO PRN (18:10)
[2017-06-30] MEDS: LOVASTATIN 20 MG TABLET PO SCH (20:49)
[2017-07-01] MEDS: DIVALPROEX SODIUM 500 MG DR TABLET PO SCH ×2 (09:04→15:59)
[2017-07-01] MEDS: DiphenhydrAMINE HCL 25 MG CAPSULE PO SCH ×2 (09:04→15:59)
[2017-07-01] MEDS: FINASTERIDE 5 MG TABLET PO SCH (09:04)
[2017-07-01] MEDS: TAMSULOSIN HCL 0.4 MG CAPSULE PO SCH (09:04)
[2017-07-01] MEDS: MONTELUKAST SODIUM 10 MG TABLET PO SCH (09:05)
[2017-07-01] MEDS: PALIPERIDONE 6 MG ER TABLET PO SCH ×2 (09:05→20:55)
[2017-07-01] MEDS: RANITIDINE HCL 150 MG TABLET PO SCH ×2 (09:05→15:59)
[2017-07-01 09:59] VITALS: BP 102/61
[2017-07-01 16:40] VITALS: BP 114/69
[2017-07-01] MEDS: LOVASTATIN 20 MG TABLET PO SCH (20:55)
[2017-07-02 00:37] VITALS: BP 112/63
[2017-07-02] MEDS: ZOLPIDEM TARTRATE 10 MG TABLET PO PRN ×2 (00:37→22:33)
[2017-07-02] MEDS: PALIPERIDONE 6 MG ER TABLET PO SCH ×2 (08:08→19:59)
[2017-07-02] MEDS: DiphenhydrAMINE HCL 25 MG CAPSULE PO SCH ×2 (08:09→15:51)
[2017-07-02] MEDS: DIVALPROEX SODIUM 500 MG DR TABLET PO SCH ×2 (08:09→17:04)
[2017-07-02] MEDS: FINASTERIDE 5 MG TABLET PO SCH (08:09)
[2017-07-02] MEDS: MONTELUKAST SODIUM 10 MG TABLET PO SCH (08:09)
[2017-07-02] MEDS: TAMSULOSIN HCL 0.4 MG CAPSULE PO SCH (08:09)
[2017-07-02] MEDS: RANITIDINE HCL 150 MG TABLET PO SCH ×2 (08:09→15:51)
[2017-07-02 12:25] VITALS: BP 115/68
[2017-07-02 17:00] VITALS: BP 98/64
[2017-07-02] MEDS: LOVASTATIN 20 MG TABLET PO SCH (19:59)
[2017-07-03 05:32] VITALS: BP 93/69
[2017-07-03] MEDS: FINASTERIDE 5 MG TABLET PO SCH (08:17)
[2017-07-03] MEDS: PALIPERIDONE 6 MG ER TABLET PO SCH ×2 (08:17→20:26)
[2017-07-03] MEDS: TAMSULOSIN HCL 0.4 MG CAPSULE PO SCH (08:17)
[2017-07-03] MEDS: SERTRALINE HCL 50 MG TABLET PO SCH (08:17)
[2017-07-03] MEDS: RANITIDINE HCL 150 MG TABLET PO SCH ×2 (08:17→17:09)
[2017-07-03] MEDS: DiphenhydrAMINE HCL 25 MG CAPSULE PO SCH ×2 (08:18→17:09)
[2017-07-03] MEDS: MONTELUKAST SODIUM 10 MG TABLET PO SCH (08:18)
[2017-07-03] MEDS: DIVALPROEX SODIUM 500 MG DR TABLET PO SCH ×2 (08:18→17:09)
[2017-07-03] MEDS: LORazepam 2 MG TABLET PO PRN (08:31)
[2017-07-03 13:20] VITALS: BP 113/64
[2017-07-03 16:35] VITALS: BP 129/73
[2017-07-03] MEDS: LOVASTATIN 20 MG TABLET PO SCH (20:26)
[2017-07-04 02:43] VITALS: BP 106/53
[2017-07-04 08:05] VITALS: BP 103/70
[2017-07-04] MEDS: DiphenhydrAMINE HCL 25 MG CAPSULE PO SCH ×2 (09:44→16:50)
[2017-07-04] MEDS: MONTELUKAST SODIUM 10 MG TABLET PO SCH (09:44)
[2017-07-04] MEDS: TAMSULOSIN HCL 0.4 MG CAPSULE PO SCH (09:44)
[2017-07-04] MEDS: RANITIDINE HCL 150 MG TABLET PO SCH ×2 (09:44→16:50)
[2017-07-04] MEDS: SERTRALINE HCL 50 MG TABLET PO SCH (09:44)
[2017-07-04] MEDS: DIVALPROEX SODIUM 500 MG DR TABLET PO SCH ×2 (09:45→16:50)
[2017-07-04] MEDS: FINASTERIDE 5 MG TABLET PO SCH (09:45)
[2017-07-04] MEDS: PALIPERIDONE 6 MG ER TABLET PO SCH ×2 (09:45→20:23)
[2017-07-04 19:53] VITALS: BP 126/70
[2017-07-04] MEDS: LOVASTATIN 20 MG TABLET PO SCH (20:23)
[2017-07-05 03:40] VITALS: BP 119/77
[2017-07-05] MEDS: DiphenhydrAMINE HCL 25 MG CAPSULE PO SCH ×2 (08:02→16:06)
[2017-07-05] MEDS: FINASTERIDE 5 MG TABLET PO SCH (08:04)
[2017-07-05] MEDS: RANITIDINE HCL 150 MG TABLET PO SCH ×2 (08:04→16:06)
[2017-07-05] MEDS: PALIPERIDONE 6 MG ER TABLET PO SCH ×2 (08:04→20:18)
[2017-07-05] MEDS: SERTRALINE HCL 50 MG TABLET PO SCH (08:04)
[2017-07-05] MEDS: DIVALPROEX SODIUM 500 MG DR TABLET PO SCH ×2 (08:04→16:06)
[2017-07-05] MEDS: TAMSULOSIN HCL 0.4 MG CAPSULE PO SCH (08:04)
[2017-07-05] MEDS: MONTELUKAST SODIUM 10 MG TABLET PO SCH (08:04)
[2017-07-05 08:30] VITALS: BP 124/81
[2017-07-05 16:45] VITALS: BP 122/82
[2017-07-05] MEDS: LOVASTATIN 20 MG TABLET PO SCH (20:18)
[2017-07-06 02:39] VITALS: BP 110/75
[2017-07-06] MEDS: MONTELUKAST SODIUM 10 MG TABLET PO SCH (08:32)
[2017-07-06] MEDS: TAMSULOSIN HCL 0.4 MG CAPSULE PO SCH (08:32)
[2017-07-06] MEDS: SERTRALINE HCL 50 MG TABLET PO SCH (08:32)
[2017-07-06] MEDS: FINASTERIDE 5 MG TABLET PO SCH (08:33)
[2017-07-06] MEDS: DIVALPROEX SODIUM 500 MG DR TABLET PO SCH ×2 (08:33→16:37)
[2017-07-06] MEDS: DiphenhydrAMINE HCL 25 MG CAPSULE PO SCH ×2 (08:33→16:37)
[2017-07-06] MEDS: RANITIDINE HCL 150 MG TABLET PO SCH ×2 (08:33→16:37)
[2017-07-06] MEDS: PALIPERIDONE 6 MG ER TABLET PO SCH ×2 (08:33→20:13)
[2017-07-06 08:40] VITALS: BP 112/61
[2017-07-06] MEDS: LORazepam 2 MG TABLET PO PRN (17:00)
[2017-07-06] MEDS: LOVASTATIN 20 MG TABLET PO SCH (20:13)
[2017-07-06 20:51] VITALS: BP 100/62
[2017-07-07 03:46] VITALS: BP 104/68
[2017-07-07 06:35] LABS: BASOPHILS # (AUTO) 0.03 K/uL (0.00-0.20); BASOPHILS % (AUTO) 0.3 % (0.0-2.0); EOSINOPHILS # (AUTO) 0.19 K/uL (0.00-0.70); EOSINOPHILS % (AUTO) 1.95 % (1.0-6.0); HEMATOCRIT 43.9 % (41-53); HEMOGLOBIN 14.5 g/dL (13.5-17.5); LYMPHOCYTES # (AUTO) 1.8 K/uL (1.0-4.8); LYMPHOCYTES % (AUTO) 19.2 % (22.0-44.0); MEAN CORPUSCULAR VOLUME 94 fL (80-100); MONOCYTES # (AUTO) 0.7 K/uL (0.1-1.0); MONOCYTES % (AUTO) 7.1 % (2.0-9.0); NEUTROPHILS # (AUTO) 6.8 K/uL (1.8-7.7); NEUTROPHILS % (AUTO) 71.4 % (40.0-70.0); PLATELET COUNT (AUTO) 117 K/uL (150-450); RED BLOOD CELL COUNT(AUTO) 4.67 MIL/uL (4.50-5.90); RED CELL DISTRIBUTION WIDTH 14.7 % (11.5-14.5)
[2017-07-07 07:13] LABS: ALANINE AMINOTRANSFERASE 19 U/L (12-78); ALBUMIN 3.2 g/dL (3.4-5.0); ALKALINE PHOSPHATASE 81 U/L (46-116); ANION GAP 6 mmol/L (8-16); ASPARTATE AMINOTRANSFERASE 16 U/L (15-37); BILIRUBIN,TOTAL 0.4 mg/dL (0.1-1.0); CALCIUM, TOTAL 8.6 mg/dL (8.8-10.5); CARBON DIOXIDE 33 mmol/L (22-29); CHLORIDE 101 mmol/L (98-107); CREATINE KINASE, TOTAL 214 U/L (39-308); CREATININE 1.06 mg/dL (0.60-1.30); GLOMERULAR FILTR. RATE CALC > 60 mL/min (>60); GLUCOSE,RANDOM 70 mg/dL (70-110); POTASSIUM 3.9 mmol/L (3.5-5.1); SODIUM SERUM 140 mmol/L (136-145); TOTAL PROTEIN, SERUM 6.3 g/dL (6.4-8.2); UREA NITROGEN, BLOOD 26 mg/dL (7-18)
[2017-07-07 07:15] LABS: CREATINE KINASE MB < 0.5 ng/mL (0-5)
[2017-07-07 08:10] VITALS: BP 110/76
[2017-07-07] MEDS: FINASTERIDE 5 MG TABLET PO SCH (08:26)
[2017-07-07] MEDS: PALIPERIDONE 6 MG ER TABLET PO SCH ×2 (08:26→20:37)
[2017-07-07] MEDS: SERTRALINE HCL 50 MG TABLET PO SCH (08:26)
[2017-07-07] MEDS: RANITIDINE HCL 150 MG TABLET PO SCH ×2 (08:26→17:10)
[2017-07-07] MEDS: TAMSULOSIN HCL 0.4 MG CAPSULE PO SCH (08:26)
[2017-07-07] MEDS: DiphenhydrAMINE HCL 25 MG CAPSULE PO SCH ×2 (08:26→17:10)
[2017-07-07] MEDS: MONTELUKAST SODIUM 10 MG TABLET PO SCH (08:27)
[2017-07-07] MEDS: DIVALPROEX SODIUM 500 MG DR TABLET PO SCH ×2 (08:27→17:10)
[2017-07-07 17:00] VITALS: BP 115/80
[2017-07-07] MEDS: LOVASTATIN 20 MG TABLET PO SCH (20:38)
[2017-07-08 00:32] VITALS: BP 100/62
[2017-07-08] MEDS: ZOLPIDEM TARTRATE 10 MG TABLET PO PRN (00:39)
[2017-07-08] MEDS: DiphenhydrAMINE HCL 25 MG CAPSULE PO SCH ×2 (08:45→16:04)
[2017-07-08] MEDS: DIVALPROEX SODIUM 500 MG DR TABLET PO SCH ×2 (08:45→16:04)
[2017-07-08] MEDS: TAMSULOSIN HCL 0.4 MG CAPSULE PO SCH (08:46)
[2017-07-08] MEDS: PALIPERIDONE 6 MG ER TABLET PO SCH ×2 (08:46→20:17)
[2017-07-08] MEDS: SERTRALINE HCL 50 MG TABLET PO SCH (08:46)
[2017-07-08] MEDS: MONTELUKAST SODIUM 10 MG TABLET PO SCH (08:47)
[2017-07-08] MEDS: RANITIDINE HCL 150 MG TABLET PO SCH ×2 (08:47→16:03)
[2017-07-08] MEDS: FINASTERIDE 5 MG TABLET PO SCH (08:48)
[2017-07-08 09:00] VITALS: BP 105/61
[2017-07-08 17:30] VITALS: BP 114/69
[2017-07-08] MEDS: LOVASTATIN 20 MG TABLET PO SCH (20:17)
[2017-07-09 02:56] VITALS: BP 115/75
[2017-07-09] MEDS: LORazepam 2 MG TABLET PO PRN (04:14)
[2017-07-09 08:05] VITALS: BP 121/87
[2017-07-09] MEDS: FINASTERIDE 5 MG TABLET PO SCH (09:02)
[2017-07-09] MEDS: PALIPERIDONE 6 MG ER TABLET PO SCH ×2 (09:02→20:19)
[2017-07-09] MEDS: MONTELUKAST SODIUM 10 MG TABLET PO SCH (09:03)
[2017-07-09] MEDS: TAMSULOSIN HCL 0.4 MG CAPSULE PO SCH (09:04)
[2017-07-09] MEDS: SERTRALINE HCL 50 MG TABLET PO SCH (09:04)
[2017-07-09] MEDS: RANITIDINE HCL 150 MG TABLET PO SCH ×2 (09:04→15:59)
[2017-07-09] MEDS: DIVALPROEX SODIUM 500 MG DR TABLET PO SCH ×2 (09:06→15:59)
[2017-07-09] MEDS: DiphenhydrAMINE HCL 25 MG CAPSULE PO SCH ×2 (09:06→15:59)
[2017-07-09 16:31] VITALS: BP 106/73
[2017-07-09] MEDS: LOVASTATIN 20 MG TABLET PO SCH (20:19)
[2017-07-09] MEDS: ZOLPIDEM TARTRATE 10 MG TABLET PO PRN (22:08)
[2017-07-10 00:45] VITALS: BP 146/73
[2017-07-10] MEDS: LORazepam 2 MG TABLET PO PRN ×2 (00:51→20:14)
[2017-07-10] MEDS: DiphenhydrAMINE HCL 25 MG CAPSULE PO SCH ×2 (09:26→16:05)
[2017-07-10] MEDS: DIVALPROEX SODIUM 500 MG DR TABLET PO SCH ×2 (09:26→16:05)
[2017-07-10] MEDS: TAMSULOSIN HCL 0.4 MG CAPSULE PO SCH (09:27)
[2017-07-10] MEDS: SERTRALINE HCL 50 MG TABLET PO SCH (09:27)
[2017-07-10] MEDS: MONTELUKAST SODIUM 10 MG TABLET PO SCH (09:27)
[2017-07-10] MEDS: FINASTERIDE 5 MG TABLET PO SCH (09:27)
[2017-07-10] MEDS: RANITIDINE HCL 150 MG TABLET PO SCH (09:27)
[2017-07-10] MEDS: PALIPERIDONE 6 MG ER TABLET PO SCH ×2 (09:27→20:13)
[2017-07-10 14:40] VITALS: BP 113/83
[2017-07-10] MEDS: MUPIROCIN CALCIUM 2% 22 GM OINTMENT NASAL SCH (16:04)
[2017-07-10 16:26] VITALS: BP 123/76
[2017-07-10] MEDS ORDERED: MUPIROCIN CALCIUM 2% 22 GM OINTMENT NASAL SCH (17:00)
[2017-07-11 01:00] VITALS: BP 104/70
[2017-07-11] MEDS: ZOLPIDEM TARTRATE 10 MG TABLET PO PRN (01:09)
[2017-07-11] MEDS: OLANZapine 5 MG RAPDIS TABLET PO PRN (01:09)
[2017-07-11] MEDS: DiphenhydrAMINE HCL 25 MG CAPSULE PO SCH ×2 (08:29→16:42)
[2017-07-11] MEDS: TAMSULOSIN HCL 0.4 MG CAPSULE PO SCH (08:29)
[2017-07-11] MEDS: PALIPERIDONE 6 MG ER TABLET PO SCH ×2 (08:29→20:10)
[2017-07-11] MEDS: SERTRALINE HCL 50 MG TABLET PO SCH (08:29)
[2017-07-11] MEDS: DIVALPROEX SODIUM 500 MG DR TABLET PO SCH ×2 (08:29→16:42)
[2017-07-11 08:47] LABS: ALANINE AMINOTRANSFERASE 20 U/L (12-78); ALBUMIN 3.4 g/dL (3.4-5.0); ALKALINE PHOSPHATASE 81 U/L (46-116); ANION GAP 9 mmol/L (8-16); ASPARTATE AMINOTRANSFERASE 21 U/L (15-37); BILIRUBIN,TOTAL 0.3 mg/dL (0.1-1.0); CALCIUM, TOTAL 8.6 mg/dL (8.8-10.5); CARBON DIOXIDE 29 mmol/L (22-29); CHLORIDE 105 mmol/L (98-107); CREATINE KINASE, TOTAL 323 U/L (39-308); CREATININE 0.94 mg/dL (0.60-1.30); GLOMERULAR FILTR. RATE CALC > 60 mL/min (>60); GLUCOSE,RANDOM 79 mg/dL (70-110); POTASSIUM 4.2 mmol/L (3.5-5.1); SODIUM SERUM 143 mmol/L (136-145); TOTAL PROTEIN, SERUM 6.1 g/dL (6.4-8.2); UREA NITROGEN, BLOOD 21 mg/dL (7-18)
[2017-07-11] MEDS: MUPIROCIN CALCIUM 2% 22 GM OINTMENT NASAL SCH ×2 (09:00→16:43)
[2017-07-11 09:27] LABS: CREATINE KINASE MB 0.6 ng/mL (0-5)
[2017-07-11 13:11] VITALS: BP 124/84
[2017-07-11 16:30] VITALS: BP 116/65
[2017-07-12 03:30] VITALS: BP 99/71
[2017-07-12] MEDS: LORazepam 2 MG TABLET PO PRN (04:01)
[2017-07-12 04:16] VITALS: BP 99/71
[2017-07-12 08:15] VITALS: BP 115/74
[2017-07-12] MEDS: MUPIROCIN CALCIUM 2% 22 GM OINTMENT NASAL SCH ×2 (08:33→17:02)
[2017-07-12] MEDS: DiphenhydrAMINE HCL 25 MG CAPSULE PO SCH ×2 (08:33→17:02)
[2017-07-12] MEDS: SERTRALINE HCL 50 MG TABLET PO SCH (08:34)
[2017-07-12] MEDS: DIVALPROEX SODIUM 500 MG DR TABLET PO SCH ×2 (08:34→17:02)
[2017-07-12] MEDS: PALIPERIDONE 6 MG ER TABLET PO SCH ×2 (08:34→20:41)
[2017-07-12] MEDS: TAMSULOSIN HCL 0.4 MG CAPSULE PO SCH (08:34)
[2017-07-12 20:05] VITALS: BP 113/75
[2017-07-13 01:38] VITALS: BP 92/59
[2017-07-13 08:15] VITALS: BP 134/86
[2017-07-13] MEDS: DiphenhydrAMINE HCL 25 MG CAPSULE PO SCH ×2 (09:00→17:24)
[2017-07-13] MEDS: SERTRALINE HCL 50 MG TABLET PO SCH (09:00)
[2017-07-13] MEDS: DIVALPROEX SODIUM 500 MG DR TABLET PO SCH ×2 (09:00→17:24)
[2017-07-13] MEDS: MUPIROCIN CALCIUM 2% 22 GM OINTMENT NASAL SCH ×2 (09:07→17:24)
[2017-07-13] MEDS: PALIPERIDONE 6 MG ER TABLET PO SCH ×2 (10:24→21:27)
[2017-07-13 17:23] VITALS: BP 109/78
[2017-07-14 01:40] VITALS: BP 105/65
[2017-07-14] MEDS: LORazepam 2 MG TABLET PO PRN ×2 (02:13→09:29)
[2017-07-14] MEDS: ZOLPIDEM TARTRATE 10 MG TABLET PO PRN (02:14)
[2017-07-14 08:32] VITALS: BP 108/71
[2017-07-14 08:57] LABS: CREATINE KINASE MB 0.7 ng/mL (0-5); CREATINE KINASE, TOTAL 163 U/L (39-308)
[2017-07-14] MEDS: DiphenhydrAMINE HCL 25 MG CAPSULE PO SCH (09:28)
[2017-07-14] MEDS: DIVALPROEX SODIUM 500 MG DR TABLET PO SCH (09:30)
[2017-07-14] MEDS: OLANZapine 5 MG RAPDIS TABLET PO PRN (09:30)
[2017-07-14] MEDS: SERTRALINE HCL 50 MG TABLET PO SCH (09:30)
[2017-07-14] MEDS: MUPIROCIN CALCIUM 2% 22 GM OINTMENT NASAL SCH (09:30)
[2017-07-14] MEDS: PALIPERIDONE 6 MG ER TABLET PO SCH (09:30)
[2017-07-14] MEDS ORDERED: DIVA500T69 PO (11:17)
[2017-07-14] MEDS ORDERED: SERT50TA12 PO (11:20)
[2017-07-14] MEDS ORDERED: MUPI1OIN4 NS (11:22)
== END 2017-07-14 14:30 | DRG 885 ==
LOC: EMS 09:46 → EEVIPCON 09:46 → 3EX 14:44
PROVIDERS: ADMIT Psychiatry & Neurology Psychiatry; ATTEND Psychiatry & Neurology Psychiatry
DX: F20.0 Paranoid schizophrenia (principal); G93.40 Encephalopathy, unspecified; D69.6 Thrombocytopenia, unspecified; E87.0 Hyperosmolality and hypernatremia; M62.82 Rhabdomyolysis; E86.0 Dehydration; D64.9 Anemia, unspecified; I10 Essential (primary) hypertension; J44.9 Chronic obstructive pulmonary disease, unspecified; K21.9 Gastro-esophageal reflux disease without esophagitis; K29.70 Gastritis, unspecified, without bleeding; N40.0 Benign prostatic hyperplasia without lower urinary tract symptoms; K59.00 Constipation, unspecified; F17.210 Nicotine dependence, cigarettes, uncomplicated; R82.4 Acetonuria; Z79.899 Other long term (current) drug therapy; Z88.8 Allergy status to other drugs, medicaments and biological substances; Z87.11 Personal history of peptic ulcer disease; Z22.322 Carrier or suspected carrier of Methicillin resistant Staphylococcus aureus
CPT/HCPCS: 51701; 70450; 82962; 83735; 84443; 87081; 96372; 99283; 99285; 99406; G0480; J0515

== ENCOUNTER 2017-07-24 15:38 | Emergency (ER) | payer MEDICARE, MEDICAID ==
[~2017-07-24] VITALS: Ht 175.3 cm; Wt 72.7 kg
[~2017-07-24 15:38] MED LIST changes: +DIVA500T69 PO; -FINA5TAB41 PO; -LOVA20 PO; -MONT10TA21 PO; +MUPI1OIN4 NS; -PALI234D IM; -RANI150T7 PO; +SERT50TA12 PO; -TAMS0.4C32 PO
[2017-07-24 16:19] LABS: BASOPHILS # (AUTO) 0.05 K/uL (0.00-0.20); BASOPHILS % (AUTO) 0.5 % (0.0-2.0); EOSINOPHILS # (AUTO) 0.16 K/uL (0.00-0.70); EOSINOPHILS % (AUTO) 1.83 % (1.0-6.0); HEMATOCRIT 37.5 % (41-53); HEMOGLOBIN 12.8 g/dL (13.5-17.5); LYMPHOCYTES # (AUTO) 2.1 K/uL (1.0-4.8); LYMPHOCYTES % (AUTO) 24.1 % (22.0-44.0); MEAN CORPUSCULAR HEMOGLOBIN 31.6 pg (26.0-34.0); MEAN CORPUSCULAR HGB CONC 34.2 G/dL (31.0-37.0); MEAN CORPUSCULAR VOLUME 92 fL (80-100); MONOCYTES # (AUTO) 0.9 K/uL (0.1-1.0); MONOCYTES % (AUTO) 10.6 % (2.0-9.0); NEUTROPHILS # (AUTO) 5.4 K/uL (1.8-7.7); PLATELET COUNT (AUTO) 120 K/uL (150-450); RED BLOOD CELL COUNT(AUTO) 4.06 MIL/uL (4.50-5.90); RED CELL DISTRIBUTION WIDTH 15.8 % (11.5-14.5)
[2017-07-24 16:23] LABS: ANION GAP 7 mmol/L (8-16); CALCIUM, TOTAL 8.8 mg/dL (8.8-10.5); CARBON DIOXIDE 28 mmol/L (22-29); CHLORIDE 104 mmol/L (98-107); CREATININE 1.01 mg/dL (0.60-1.30); GLOMERULAR FILTR. RATE CALC > 60 mL/min (>60); GLUCOSE,RANDOM 79 mg/dL (70-110); POTASSIUM 3.7 mmol/L (3.5-5.1); SODIUM SERUM 139 mmol/L (136-145); UREA NITROGEN, BLOOD 17 mg/dL (7-18)
[2017-07-24] MEDS ORDERED: SODIUM CHLORIDE 0.9% 1,000 ML IV ONE (16:30)
[2017-07-24 16:37] LABS: ALBUMIN 3.2 g/dL (3.4-5.0); ALKALINE PHOSPHATASE 70 U/L (46-116); ASPARTATE AMINOTRANSFERASE 18 U/L (15-37); BILIRUBIN,TOTAL 0.3 mg/dL (0.1-1.0); TOTAL PROTEIN, SERUM 6.1 g/dL (6.4-8.2)
[2017-07-24 16:52] LABS: ALANINE AMINOTRANSFERASE 18 U/L (12-78); VALPROIC ACID 73 mcg/mL (50-100)
[2017-07-24] MEDS ORDERED: LORazepam 1 MG TABLET PO ONE (19:00)
[2017-07-24] MEDS ORDERED: OLANZapine 5 MG RAPDIS TABLET PO ONE (19:00)
[2017-07-24 19:30] VITALS: BP 106/62
== END 2017-07-24 20:11 | disposition home or self-care (01) ==
LOC: EMS 15:40
DX: F20.0 Paranoid schizophrenia (principal); I10 Essential (primary) hypertension; E78.00 Pure hypercholesterolemia, unspecified; J45.909 Unspecified asthma, uncomplicated; K21.9 Gastro-esophageal reflux disease without esophagitis; F17.210 Nicotine dependence, cigarettes, uncomplicated; Z88.8 Allergy status to other drugs, medicaments and biological substances
CPT/HCPCS: 36415; 80053; 80164; 85025; 93005; 96360; 96361; 99285; G0480; J7030

== ENCOUNTER 2017-07-25 17:17 | Inpatient (IN) | payer MEDICARE, MEDICAID ==
[~2017-07-25] VITALS: Ht 170.2 cm; Wt 68.2 kg
[2017-07-25] MEDS ORDERED: LORazepam 2 MG TABLET PO ONE (18:30)
[2017-07-25 18:45] LABS: BASOPHILS % (AUTO) 0.5 % (0.0-2.0); EOSINOPHILS % (AUTO) 2.9 % (1.0-6.0); HEMATOCRIT 36.1 % (41-53); HEMOGLOBIN 12.4 g/dL (13.5-17.5); LYMPHOCYTES # (AUTO) 1.7 K/uL (1.0-4.8); MEAN CORPUSCULAR HEMOGLOBIN 31.9 pg (26.0-34.0); MEAN CORPUSCULAR HGB CONC 34.2 G/dL (31.0-37.0); MEAN CORPUSCULAR VOLUME 93 fL (80-100); MONOCYTES # (AUTO) 0.7 K/uL (0.1-1.0); MONOCYTES % (AUTO) 8.2 % (2.0-9.0); NEUTROPHILS # (AUTO) 5.5 K/uL (1.8-7.7); NEUTROPHILS % (AUTO) 67.4 % (40.0-70.0); PLATELET COUNT (AUTO) 121 K/uL (150-450); RED BLOOD CELL COUNT(AUTO) 3.88 MIL/uL (4.50-5.90); RED CELL DISTRIBUTION WIDTH 15.7 % (11.5-14.5)
[2017-07-25 18:59] LABS: ANION GAP 5 mmol/L (8-16); CALCIUM, TOTAL 8.7 mg/dL (8.8-10.5); CARBON DIOXIDE 28 mmol/L (22-29); CHLORIDE 106 mmol/L (98-107); CREATININE 0.98 mg/dL (0.60-1.30); GLOMERULAR FILTR. RATE CALC > 60 mL/min (>60); GLUCOSE,RANDOM 137 mg/dL (70-110); POTASSIUM 4.2 mmol/L (3.5-5.1); SODIUM SERUM 139 mmol/L (136-145); UREA NITROGEN, BLOOD 21 mg/dL (7-18)
[2017-07-25 19:05] LABS: ALANINE AMINOTRANSFERASE 17 U/L (12-78); ALBUMIN 3.1 g/dL (3.4-5.0); ALKALINE PHOSPHATASE 69 U/L (46-116); ASPARTATE AMINOTRANSFERASE 14 U/L (15-37); BILIRUBIN,TOTAL 0.3 mg/dL (0.1-1.0); TOTAL PROTEIN, SERUM 5.8 g/dL (6.4-8.2)
[2017-07-25 21:07] VITALS: BP 109/62
[2017-07-26 08:39] VITALS: BP 92/64
[2017-07-26] MEDS: SERTRALINE HCL 50 MG TABLET PO SCH (12:29)
[2017-07-26] MEDS: DIVALPROEX SODIUM 500 MG DR TABLET PO SCH (16:17)
[2017-07-26] MEDS: DiphenhydrAMINE HCL 25 MG CAPSULE PO SCH (16:17)
[2017-07-26 16:18] VITALS: BP 105/58
[2017-07-26] MEDS: PALIPERIDONE 6 MG ER TABLET PO SCH (21:19)
[2017-07-27 08:00] VITALS: BP 136/77
[2017-07-27] MEDS: DiphenhydrAMINE HCL 25 MG CAPSULE PO SCH ×2 (08:52→16:41)
[2017-07-27] MEDS: DIVALPROEX SODIUM 500 MG DR TABLET PO SCH ×2 (08:52→16:41)
[2017-07-27] MEDS: SERTRALINE HCL 50 MG TABLET PO SCH (08:52)
[2017-07-27] MEDS: PALIPERIDONE 6 MG ER TABLET PO SCH ×2 (08:52→20:11)
[2017-07-27] MEDS: LORazepam 2 MG TABLET PO PRN (10:20)
[2017-07-27 16:51] VITALS: BP 98/58
[2017-07-28] MEDS: SERTRALINE HCL 50 MG TABLET PO SCH (08:32)
[2017-07-28] MEDS: DiphenhydrAMINE HCL 25 MG CAPSULE PO SCH ×2 (08:32→16:22)
[2017-07-28] MEDS: PALIPERIDONE 6 MG ER TABLET PO SCH ×2 (08:32→20:29)
[2017-07-28] MEDS: DIVALPROEX SODIUM 500 MG DR TABLET PO SCH ×2 (08:32→16:22)
[2017-07-28 09:26] VITALS: BP 88/52
[2017-07-28] MEDS: LORazepam 2 MG TABLET PO PRN (11:25)
[2017-07-28 16:46] VITALS: BP 103/50
[2017-07-29] MEDS: DiphenhydrAMINE HCL 25 MG CAPSULE PO SCH ×2 (08:40→16:40)
[2017-07-29] MEDS: PALIPERIDONE 6 MG ER TABLET PO SCH ×2 (08:40→21:17)
[2017-07-29] MEDS: SERTRALINE HCL 50 MG TABLET PO SCH (08:40)
[2017-07-29] MEDS: DIVALPROEX SODIUM 500 MG DR TABLET PO SCH ×2 (08:41→16:40)
[2017-07-29 08:57] VITALS: BP 106/58
[2017-07-29] MEDS: LORazepam 2 MG TABLET PO PRN (12:04)
[2017-07-29 16:58] VITALS: BP 90/60
[2017-07-30 08:30] VITALS: BP 101/54
[2017-07-30] MEDS: DiphenhydrAMINE HCL 25 MG CAPSULE PO SCH ×2 (09:17→16:44)
[2017-07-30] MEDS: DIVALPROEX SODIUM 500 MG DR TABLET PO SCH ×2 (09:18→16:44)
[2017-07-30] MEDS: SERTRALINE HCL 50 MG TABLET PO SCH (09:18)
[2017-07-30] MEDS: PALIPERIDONE 6 MG ER TABLET PO SCH ×2 (09:18→20:39)
[2017-07-30 17:00] VITALS: BP 104/65
[2017-07-31] VITALS (8 sets, daily range): BP systolic 98–133; BP diastolic 50–81
[2017-07-31] MEDS: OLANZapine 5 MG RAPDIS TABLET PO PRN (08:03)
[2017-07-31] MEDS: LORazepam 2 MG TABLET PO PRN (08:03)
[2017-07-31] MEDS: DIVALPROEX SODIUM 500 MG DR TABLET PO SCH ×3 (08:04→16:45)
[2017-07-31] MEDS: PALIPERIDONE 6 MG ER TABLET PO SCH ×3 (08:04→20:14)
[2017-07-31] MEDS: SERTRALINE HCL 50 MG TABLET PO SCH ×2 (08:04→09:08)
[2017-07-31] MEDS: DiphenhydrAMINE HCL 25 MG CAPSULE PO SCH ×3 (08:04→16:45)
[2017-08-01 03:30] VITALS: BP 107/74
[2017-08-01] MEDS: LORazepam 2 MG TABLET PO PRN ×2 (03:43→08:08)
[2017-08-01 08:00] VITALS: BP 95/61
[2017-08-01] MEDS: PALIPERIDONE 6 MG ER TABLET PO SCH ×2 (08:08→20:29)
[2017-08-01] MEDS: SERTRALINE HCL 50 MG TABLET PO SCH (08:08)
[2017-08-01] MEDS: DIVALPROEX SODIUM 500 MG DR TABLET PO SCH ×2 (08:08→16:50)
[2017-08-01] MEDS: DiphenhydrAMINE HCL 25 MG CAPSULE PO SCH ×2 (08:11→16:50)
[2017-08-01] MEDS: OLANZapine 5 MG RAPDIS TABLET PO PRN (11:54)
[2017-08-01 18:27] VITALS: BP 86/58
[2017-08-02] MEDS: ZOLPIDEM TARTRATE 10 MG TABLET PO PRN (00:52)
[2017-08-02 01:13] VITALS: BP 119/73
[2017-08-02] MEDS: LORazepam 2 MG TABLET PO PRN ×3 (07:57→22:04)
[2017-08-02] MEDS: PALIPERIDONE 6 MG ER TABLET PO SCH ×2 (07:58→21:26)
[2017-08-02] MEDS: DiphenhydrAMINE HCL 25 MG CAPSULE PO SCH ×2 (07:58→16:21)
[2017-08-02] MEDS: SERTRALINE HCL 50 MG TABLET PO SCH (07:58)
[2017-08-02] MEDS: DIVALPROEX SODIUM 500 MG DR TABLET PO SCH ×2 (07:58→16:22)
[2017-08-02 08:00] VITALS: BP 142/86
[2017-08-02 17:00] VITALS: BP 99/60
[2017-08-03 08:00] VITALS: BP 110/64
[2017-08-03] MEDS: DiphenhydrAMINE HCL 25 MG CAPSULE PO SCH ×2 (08:12→16:35)
[2017-08-03] MEDS: LORazepam 2 MG TABLET PO PRN (08:12)
[2017-08-03] MEDS: SERTRALINE HCL 50 MG TABLET PO SCH (08:12)
[2017-08-03] MEDS: PALIPERIDONE 6 MG ER TABLET PO SCH ×2 (08:12→20:09)
[2017-08-03] MEDS: DIVALPROEX SODIUM 500 MG DR TABLET PO SCH (08:13)
[2017-08-03 14:34] LABS: BASOPHILS % (AUTO) 0.5 % (0.0-2.0); EOSINOPHILS % (AUTO) 8.9 % (1.0-6.0); HEMATOCRIT 39.7 % (41-53); HEMOGLOBIN 13.5 g/dL (13.5-17.5); LYMPHOCYTES # (AUTO) 1.4 K/uL (1.0-4.8); LYMPHOCYTES % (AUTO) 27.4 % (22.0-44.0); MEAN CORPUSCULAR HEMOGLOBIN 32.3 pg (26.0-34.0); MEAN CORPUSCULAR HGB CONC 34.1 G/dL (31.0-37.0); MEAN CORPUSCULAR VOLUME 95 fL (80-100); MONOCYTES # (AUTO) 0.4 K/uL (0.1-1.0); MONOCYTES % (AUTO) 7.3 % (2.0-9.0); NEUTROPHILS # (AUTO) 2.8 K/uL (1.8-7.7); NEUTROPHILS % (AUTO) 55.9 % (40.0-70.0); PLATELET COUNT (AUTO) 111 K/uL (150-450); RED BLOOD CELL COUNT(AUTO) 4.18 MIL/uL (4.50-5.90); RED CELL DISTRIBUTION WIDTH 16.6 % (11.5-14.5)
[2017-08-03 14:54] LABS: ALANINE AMINOTRANSFERASE 13 U/L (12-78); ALBUMIN 3.1 g/dL (3.4-5.0); ALKALINE PHOSPHATASE 76 U/L (46-116); ANION GAP 4 mmol/L (8-16); ASPARTATE AMINOTRANSFERASE 13 U/L (15-37); BILIRUBIN,TOTAL 0.2 mg/dL (0.1-1.0); CALCIUM, TOTAL 8.6 mg/dL (8.8-10.5); CARBON DIOXIDE 33 mmol/L (22-29); CHLORIDE 106 mmol/L (98-107); GLOMERULAR FILTR. RATE CALC > 60 mL/min (>60); GLUCOSE,RANDOM 89 mg/dL (70-110); POTASSIUM 4.7 mmol/L (3.5-5.1); SODIUM SERUM 143 mmol/L (136-145); TOTAL PROTEIN, SERUM 6.3 g/dL (6.4-8.2); UREA NITROGEN, BLOOD 22 mg/dL (7-18)
[2017-08-03] MEDS: DIVALPROEX SODIUM 250 MG DR TABLET PO SCH (16:36)
[2017-08-03 18:30] VITALS: BP 101/64
[2017-08-04 00:40] VITALS: BP 101/62
[2017-08-04] MEDS: LORazepam 2 MG TABLET PO PRN (00:42)
[2017-08-04] MEDS: ZOLPIDEM TARTRATE 10 MG TABLET PO PRN (00:43)
[2017-08-04 08:30] VITALS: BP 94/60
[2017-08-04] MEDS: DiphenhydrAMINE HCL 25 MG CAPSULE PO SCH ×2 (09:15→16:12)
[2017-08-04] MEDS: PALIPERIDONE 6 MG ER TABLET PO SCH ×2 (09:16→20:00)
[2017-08-04] MEDS: SERTRALINE HCL 50 MG TABLET PO SCH (09:16)
[2017-08-04] MEDS: DIVALPROEX SODIUM 250 MG DR TABLET PO SCH ×2 (09:16→16:11)
[2017-08-04 16:51] VITALS: BP 106/60
[2017-08-05 04:17] VITALS: BP 91/56
[2017-08-05] MEDS: LORazepam 2 MG TABLET PO PRN ×3 (08:00→17:56)
[2017-08-05 08:11] VITALS: BP 123/69
[2017-08-05] MEDS: SERTRALINE HCL 50 MG TABLET PO SCH (09:23)
[2017-08-05] MEDS: DIVALPROEX SODIUM 250 MG DR TABLET PO SCH ×2 (09:23→16:07)
[2017-08-05] MEDS: PALIPERIDONE 6 MG ER TABLET PO SCH ×2 (09:23→20:26)
[2017-08-05] MEDS: DiphenhydrAMINE HCL 25 MG CAPSULE PO SCH ×2 (09:23→16:06)
[2017-08-05] MEDS: OLANZapine 5 MG RAPDIS TABLET PO PRN (16:06)
[2017-08-05 17:00] VITALS: BP 124/84
[2017-08-05] MEDS ORDERED: ZIPRASIDONE MESYLATE 20 MG/VIAL IM ONE (18:15)
[2017-08-05] MEDS: LITHIUM CARBONATE 300 MG CAPSULE PO SCH (20:27)
[2017-08-06] MEDS: DiphenhydrAMINE HCL 25 MG CAPSULE PO SCH ×3 (08:02→18:43)
[2017-08-06] MEDS: PALIPERIDONE 6 MG ER TABLET PO SCH ×2 (08:02→20:14)
[2017-08-06] MEDS: LITHIUM CARBONATE 300 MG CAPSULE PO SCH ×4 (08:02→18:43)
[2017-08-06] MEDS: SERTRALINE HCL 50 MG TABLET PO SCH (08:02)
[2017-08-06] MEDS: LORazepam 2 MG TABLET PO PRN (08:03)
[2017-08-06 08:05] VITALS: BP 106/64
[2017-08-06 17:08] LABS: GLUCOMETER DEV NAME(LOC) 3EX 1; GLUCOSE,POINT OF CARE 93 MG/DL (70-110)
[2017-08-06 18:45] VITALS: BP 104/83
[2017-08-07 08:23] VITALS: BP 98/61
[2017-08-07] MEDS: LITHIUM CARBONATE 300 MG CAPSULE PO SCH ×3 (08:37→17:08)
[2017-08-07] MEDS: DiphenhydrAMINE HCL 25 MG CAPSULE PO SCH ×2 (08:37→17:08)
[2017-08-07] MEDS: PALIPERIDONE 6 MG ER TABLET PO SCH ×2 (08:37→19:57)
[2017-08-07] MEDS: SERTRALINE HCL 50 MG TABLET PO SCH (08:38)
[2017-08-07] MEDS: OLANZapine 5 MG RAPDIS TABLET PO PRN ×2 (15:49→22:53)
[2017-08-07 16:45] VITALS: BP 103/65
[2017-08-08 00:46] VITALS: BP 122/68
[2017-08-08] MEDS: ZOLPIDEM TARTRATE 10 MG TABLET PO PRN (02:34)
[2017-08-08] MEDS: OLANZapine 5 MG RAPDIS TABLET PO PRN ×2 (06:56→15:14)
[2017-08-08] MEDS: SERTRALINE HCL 50 MG TABLET PO SCH (08:37)
[2017-08-08] MEDS: PALIPERIDONE 6 MG ER TABLET PO SCH ×2 (08:37→21:46)
[2017-08-08] MEDS: DiphenhydrAMINE HCL 25 MG CAPSULE PO SCH ×2 (08:37→17:00)
[2017-08-08] MEDS: LITHIUM CARBONATE 300 MG CAPSULE PO SCH ×3 (08:38→17:00)
[2017-08-08] MEDS ORDERED: ALBUTEROL SULFATE HFA 90 MCG/PUFF 8 GM INHALER IH PRN (10:45)
[2017-08-08] MEDS: LORazepam 2 MG TABLET PO PRN (15:14)
[2017-08-08 16:45] VITALS: BP 98/63
[2017-08-09 05:47] VITALS: BP 101/63
[2017-08-09 06:55] LABS: BASOPHILS % (AUTO) 0.6 % (0.0-2.0); EOSINOPHILS % (AUTO) 7.2 % (1.0-6.0); HEMATOCRIT 42.4 % (41-53); HEMOGLOBIN 14.5 g/dL (13.5-17.5); LYMPHOCYTES # (AUTO) 1.5 K/uL (1.0-4.8); LYMPHOCYTES % (AUTO) 25.5 % (22.0-44.0); MEAN CORPUSCULAR HEMOGLOBIN 32.1 pg (26.0-34.0); MEAN CORPUSCULAR HGB CONC 34.2 G/dL (31.0-37.0); MEAN CORPUSCULAR VOLUME 94 fL (80-100); MONOCYTES # (AUTO) 0.5 K/uL (0.1-1.0); NEUTROPHILS # (AUTO) 3.3 K/uL (1.8-7.7); NEUTROPHILS % (AUTO) 57.7 % (40.0-70.0); PLATELET COUNT (AUTO) 101 K/uL (150-450); RED BLOOD CELL COUNT(AUTO) 4.52 MIL/uL (4.50-5.90); RED CELL DISTRIBUTION WIDTH 16.9 % (11.5-14.5)
[2017-08-09 07:14] LABS: LITHIUM 0.54 mmol/L (0.60-1.20)
[2017-08-09 07:39] LABS: ALANINE AMINOTRANSFERASE 18 U/L (12-78); ALBUMIN 3.6 g/dL (3.4-5.0); ALKALINE PHOSPHATASE 85 U/L (46-116); ANION GAP 5 mmol/L (8-16); ASPARTATE AMINOTRANSFERASE 15 U/L (15-37); BILIRUBIN,TOTAL 0.7 mg/dL (0.1-1.0); CARBON DIOXIDE 32 mmol/L (22-29); CHLORIDE 103 mmol/L (98-107); CREATININE 1.14 mg/dL (0.60-1.30); GLOMERULAR FILTR. RATE CALC > 60 mL/min (>60); GLUCOSE,RANDOM 130 mg/dL (70-110); POTASSIUM 3.8 mmol/L (3.5-5.1); SODIUM SERUM 140 mmol/L (136-145); THYROID STIMULATING HORMONE 5.05 uIU/mL (0.36-3.74); TOTAL PROTEIN, SERUM 6.7 g/dL (6.4-8.2); UREA NITROGEN, BLOOD 18 mg/dL (7-18)
[2017-08-09] MEDS: PALIPERIDONE 6 MG ER TABLET PO SCH ×2 (08:04→20:14)
[2017-08-09] MEDS: LITHIUM CARBONATE 300 MG CAPSULE PO SCH ×3 (08:04→17:31)
[2017-08-09] MEDS: DiphenhydrAMINE HCL 25 MG CAPSULE PO SCH ×2 (08:04→17:32)
[2017-08-09] MEDS: MONTELUKAST SODIUM 10 MG TABLET PO SCH (08:05)
[2017-08-09] MEDS: SERTRALINE HCL 50 MG TABLET PO SCH (08:07)
[2017-08-09 09:43] VITALS: BP 99/58
[2017-08-09] MEDS: LORazepam 2 MG TABLET PO PRN ×2 (14:19→23:38)
[2017-08-09] MEDS: OLANZapine 5 MG RAPDIS TABLET PO PRN (14:22)
[2017-08-09 17:46] VITALS: BP 94/71
[2017-08-09 23:35] VITALS: BP 100/67
[2017-08-09] MEDS: ZOLPIDEM TARTRATE 10 MG TABLET PO PRN (23:39)
[2017-08-10 09:18] VITALS: BP 110/72
[2017-08-10] MEDS: PALIPERIDONE 6 MG ER TABLET PO SCH ×2 (09:20→20:13)
[2017-08-10] MEDS: SERTRALINE HCL 50 MG TABLET PO SCH (09:20)
[2017-08-10] MEDS: MONTELUKAST SODIUM 10 MG TABLET PO SCH (09:20)
[2017-08-10] MEDS: LITHIUM CARBONATE 300 MG CAPSULE PO SCH ×3 (09:20→16:51)
[2017-08-10] MEDS: DiphenhydrAMINE HCL 25 MG CAPSULE PO SCH ×2 (09:20→16:51)
[2017-08-10] MEDS: OLANZapine 5 MG RAPDIS TABLET PO PRN (09:26)
[2017-08-10] MEDS: LORazepam 2 MG TABLET PO PRN (09:26)
[2017-08-10 17:12] VITALS: BP 105/71
[2017-08-11 02:50] VITALS: BP 117/66
[2017-08-11] MEDS: LORazepam 2 MG TABLET PO PRN (03:00)
[2017-08-11] MEDS: ZOLPIDEM TARTRATE 10 MG TABLET PO PRN (03:00)
[2017-08-11 08:11] VITALS: BP 99/69
[2017-08-11] MEDS: PALIPERIDONE 6 MG ER TABLET PO SCH ×2 (09:32→20:21)
[2017-08-11] MEDS: SERTRALINE HCL 50 MG TABLET PO SCH (09:32)
[2017-08-11] MEDS: LITHIUM CARBONATE 300 MG CAPSULE PO SCH ×3 (09:32→16:30)
[2017-08-11] MEDS: DiphenhydrAMINE HCL 25 MG CAPSULE PO SCH ×2 (09:32→16:30)
[2017-08-11] MEDS: MONTELUKAST SODIUM 10 MG TABLET PO SCH (09:32)
[2017-08-11 17:05] VITALS: BP 102/57
[2017-08-12] MEDS: MONTELUKAST SODIUM 10 MG TABLET PO SCH (08:21)
[2017-08-12] MEDS: PALIPERIDONE 6 MG ER TABLET PO SCH (08:21)
[2017-08-12] MEDS: DiphenhydrAMINE HCL 25 MG CAPSULE PO SCH ×2 (08:21→17:40)
[2017-08-12] MEDS: SERTRALINE HCL 50 MG TABLET PO SCH (08:23)
[2017-08-12] MEDS: LITHIUM CARBONATE 300 MG CAPSULE PO SCH ×3 (08:23→17:40)
[2017-08-12 08:51] VITALS: BP 113/63
[2017-08-12] MEDS: OLANZapine 5 MG RAPDIS TABLET PO PRN (09:10)
[2017-08-12] MEDS ORDERED: ACETAMINOPHEN 325 MG TABLET PO PRN (09:30)
[2017-08-12] MEDS: LORazepam 2 MG TABLET PO PRN (09:30)
[2017-08-12 09:32] VITALS: BP 120/76
[2017-08-12] MEDS: IBUPROFEN 600 MG TABLET PO PRN (09:32)
[2017-08-12] MEDS: OLANZapine 10 MG RAPDIS TABLET PO SCH ×2 (10:01→17:40)
[2017-08-12 21:01] VITALS: BP 102/63
[2017-08-13] MEDS: LORazepam 2 MG TABLET PO PRN ×2 (01:30→12:05)
[2017-08-13] MEDS: OLANZapine 5 MG RAPDIS TABLET PO PRN (01:30)
[2017-08-13 07:05] LABS: CREATINE KINASE, TOTAL 48 U/L (39-308); FREE T4 (FREE THYROXINE) 0.74 ng/dL (0.76-1.46); THYROID STIMULATING HORMONE 4.65 uIU/mL (0.36-3.74)
[2017-08-13 08:18] VITALS: BP 95/55
[2017-08-13] MEDS: SERTRALINE HCL 50 MG TABLET PO SCH (09:14)
[2017-08-13] MEDS: DiphenhydrAMINE HCL 25 MG CAPSULE PO SCH ×2 (09:14→16:49)
[2017-08-13] MEDS: LITHIUM CARBONATE 300 MG CAPSULE PO SCH ×3 (09:15→16:49)
[2017-08-13] MEDS: OLANZapine 10 MG RAPDIS TABLET PO SCH ×2 (09:15→16:49)
[2017-08-13] MEDS: MONTELUKAST SODIUM 10 MG TABLET PO SCH (09:15)
[2017-08-13] MEDS: NICOTINE 14 MG/24 HOUR PATCH TD SCH (12:04)
[2017-08-13 16:46] VITALS: BP 94/57
[2017-08-13 16:55] LABS: APPEARANCE,URINE CLEAR (CLEAR); BILIRUBIN,URINE NEGATIVE (NEGATIVE); GLUCOSE, URINE (UA) NEGATIVE (NEGATIVE); KETONES,URINE NEGATIVE (NEGATIVE); LEUKOCYTE ESTERASE ,URINE NEGATIVE (NEGATIVE); NITRATE,URINE NEGATIVE (NEGATIVE); OCCULT BLOOD,URINE NEGATIVE (NEGATIVE); PROTEIN,URINE NEGATIVE (NEGATIVE)
[2017-08-14] MEDS: LEVOTHYROXINE SODIUM 25 MCG TABLET PO SCH (06:41)
[2017-08-14 08:05] VITALS: BP 108/64
[2017-08-14] MEDS: DiphenhydrAMINE HCL 25 MG CAPSULE PO SCH ×2 (09:02→16:18)
[2017-08-14] MEDS: LITHIUM CARBONATE 300 MG CAPSULE PO SCH ×3 (09:03→16:17)
[2017-08-14] MEDS: OLANZapine 10 MG RAPDIS TABLET PO SCH ×2 (09:03→16:18)
[2017-08-14] MEDS: MONTELUKAST SODIUM 10 MG TABLET PO SCH (09:03)
[2017-08-14] MEDS: SERTRALINE HCL 50 MG TABLET PO SCH (09:03)
[2017-08-14] MEDS: NICOTINE 14 MG/24 HOUR PATCH TD SCH (09:09)
[2017-08-14 18:29] VITALS: BP 107/79
[2017-08-14] MEDS: LORazepam 2 MG TABLET PO PRN (19:04)
[2017-08-14] MEDS: OLANZapine 5 MG RAPDIS TABLET PO PRN (21:24)
[2017-08-14] MEDS: ZOLPIDEM TARTRATE 10 MG TABLET PO PRN (21:24)
[2017-08-15 00:40] VITALS: BP 93/61
[2017-08-15] MEDS: LORazepam 2 MG TABLET PO PRN ×2 (00:50→12:44)
[2017-08-15] MEDS: LEVOTHYROXINE SODIUM 25 MCG TABLET PO SCH (06:31)
[2017-08-15] MEDS: SERTRALINE HCL 50 MG TABLET PO SCH (09:09)
[2017-08-15] MEDS: LITHIUM CARBONATE 300 MG CAPSULE PO SCH ×3 (09:09→17:35)
[2017-08-15] MEDS: NICOTINE 14 MG/24 HOUR PATCH TD SCH (09:09)
[2017-08-15] MEDS: DiphenhydrAMINE HCL 25 MG CAPSULE PO SCH ×2 (09:09→17:35)
[2017-08-15] MEDS: OLANZapine 10 MG RAPDIS TABLET PO SCH ×2 (09:10→17:35)
[2017-08-15] MEDS: MONTELUKAST SODIUM 10 MG TABLET PO SCH (09:11)
[2017-08-15 11:00] VITALS: BP 107/68
[2017-08-15] MEDS: OLANZapine 5 MG RAPDIS TABLET PO PRN (12:44)
[2017-08-15 16:06] VITALS: BP 113/76
[2017-08-16 03:55] VITALS: BP 100/76
[2017-08-16] MEDS: LORazepam 2 MG TABLET PO PRN ×2 (04:08→19:47)
[2017-08-16] MEDS: LEVOTHYROXINE SODIUM 25 MCG TABLET PO SCH (06:55)
[2017-08-16] MEDS: OLANZapine 10 MG RAPDIS TABLET PO SCH ×2 (08:31→16:01)
[2017-08-16] MEDS: SERTRALINE HCL 50 MG TABLET PO SCH (08:31)
[2017-08-16] MEDS: MONTELUKAST SODIUM 10 MG TABLET PO SCH (08:31)
[2017-08-16] MEDS: LITHIUM CARBONATE 300 MG CAPSULE PO SCH ×3 (08:31→16:01)
[2017-08-16] MEDS: NICOTINE 14 MG/24 HOUR PATCH TD SCH (08:31)
[2017-08-16] MEDS: DiphenhydrAMINE HCL 25 MG CAPSULE PO SCH ×2 (08:31→16:01)
[2017-08-16 09:22] VITALS: BP 98/72
[2017-08-16] MEDS: IBUPROFEN 600 MG TABLET PO PRN (10:28)
[2017-08-16 10:31] VITALS: BP 113/79
[2017-08-16 16:07] VITALS: BP 115/73
[2017-08-16] MEDS: ZOLPIDEM TARTRATE 10 MG TABLET PO PRN (21:40)
[2017-08-17] MEDS: LEVOTHYROXINE SODIUM 25 MCG TABLET PO SCH (06:43)
[2017-08-17 08:00] VITALS: BP 119/71
[2017-08-17] MEDS: SERTRALINE HCL 50 MG TABLET PO SCH (08:43)
[2017-08-17] MEDS: DiphenhydrAMINE HCL 25 MG CAPSULE PO SCH ×2 (08:43→16:04)
[2017-08-17] MEDS: LITHIUM CARBONATE 300 MG CAPSULE PO SCH ×3 (08:43→16:04)
[2017-08-17] MEDS: NICOTINE 14 MG/24 HOUR PATCH TD SCH (08:44)
[2017-08-17] MEDS: MONTELUKAST SODIUM 10 MG TABLET PO SCH (08:44)
[2017-08-17] MEDS: OLANZapine 10 MG RAPDIS TABLET PO SCH ×2 (08:44→16:04)
[2017-08-17] MEDS: LORazepam 2 MG TABLET PO PRN ×3 (12:51→22:33)
[2017-08-17 16:13] VITALS: BP 104/67
[2017-08-17] MEDS: BACITRACIN 28.4 GM OINTMENT TP SCH (17:09)
[2017-08-17] MEDS: ZOLPIDEM TARTRATE 10 MG TABLET PO PRN (21:56)
[2017-08-18 04:15] VITALS: BP 112/69
[2017-08-18] MEDS: LORazepam 2 MG TABLET PO PRN ×4 (04:20→23:56)
[2017-08-18] MEDS: LEVOTHYROXINE SODIUM 25 MCG TABLET PO SCH (06:41)
[2017-08-18 08:15] VITALS: BP 114/84
[2017-08-18] MEDS: SERTRALINE HCL 50 MG TABLET PO SCH (08:18)
[2017-08-18] MEDS: DiphenhydrAMINE HCL 25 MG CAPSULE PO SCH ×2 (08:18→15:51)
[2017-08-18] MEDS: LITHIUM CARBONATE 300 MG CAPSULE PO SCH ×3 (08:18→15:51)
[2017-08-18] MEDS: MONTELUKAST SODIUM 10 MG TABLET PO SCH (08:19)
[2017-08-18] MEDS: OLANZapine 10 MG RAPDIS TABLET PO SCH ×2 (08:19→17:51)
[2017-08-18] MEDS: NICOTINE 14 MG/24 HOUR PATCH TD SCH (08:24)
[2017-08-18] MEDS: BACITRACIN 28.4 GM OINTMENT TP SCH ×2 (13:10→16:09)
[2017-08-18 16:30] VITALS: BP 117/78
[2017-08-18] MEDS: ZOLPIDEM TARTRATE 10 MG TABLET PO PRN (22:15)
[2017-08-19 00:10] VITALS: BP 118/79
[2017-08-19] MEDS: OLANZapine 5 MG RAPDIS TABLET PO PRN (00:57)
[2017-08-19] MEDS: LEVOTHYROXINE SODIUM 25 MCG TABLET PO SCH (06:46)
[2017-08-19 08:00] VITALS: BP 99/60
[2017-08-19] MEDS: MONTELUKAST SODIUM 10 MG TABLET PO SCH (08:34)
[2017-08-19] MEDS: SERTRALINE HCL 50 MG TABLET PO SCH (08:34)
[2017-08-19] MEDS: LITHIUM CARBONATE 300 MG CAPSULE PO SCH ×3 (08:34→16:14)
[2017-08-19] MEDS: DiphenhydrAMINE HCL 25 MG CAPSULE PO SCH ×2 (08:34→16:14)
[2017-08-19] MEDS: OLANZapine 10 MG RAPDIS TABLET PO SCH ×2 (08:34→16:14)
[2017-08-19] MEDS: NICOTINE 14 MG/24 HOUR PATCH TD SCH (08:34)
[2017-08-19] MEDS: BACITRACIN 28.4 GM OINTMENT TP SCH ×2 (08:35→16:14)
[2017-08-19] MEDS: LORazepam 2 MG TABLET PO PRN (14:27)
[2017-08-19 16:02] VITALS: BP 110/71
[2017-08-19] MEDS: ZOLPIDEM TARTRATE 10 MG TABLET PO PRN (20:28)
[2017-08-20] MEDS: LORazepam 2 MG TABLET PO PRN ×3 (00:55→20:20)
[2017-08-20] MEDS: OLANZapine 5 MG RAPDIS TABLET PO PRN ×3 (00:55→20:20)
[2017-08-20 01:00] VITALS: BP 103/63
[2017-08-20] MEDS: LEVOTHYROXINE SODIUM 25 MCG TABLET PO SCH (07:13)
[2017-08-20] MEDS: NICOTINE 14 MG/24 HOUR PATCH TD SCH (08:06)
[2017-08-20] MEDS: MONTELUKAST SODIUM 10 MG TABLET PO SCH (08:06)
[2017-08-20] MEDS: DiphenhydrAMINE HCL 25 MG CAPSULE PO SCH ×2 (08:07→16:52)
[2017-08-20] MEDS: OLANZapine 10 MG RAPDIS TABLET PO SCH ×2 (08:07→16:52)
[2017-08-20] MEDS: LITHIUM CARBONATE 300 MG CAPSULE PO SCH ×3 (08:07→16:51)
[2017-08-20] MEDS: SERTRALINE HCL 50 MG TABLET PO SCH (08:07)
[2017-08-20] MEDS: BACITRACIN 28.4 GM OINTMENT TP SCH ×2 (08:09→16:52)
[2017-08-20 08:41] VITALS: BP 92/64
[2017-08-20 17:00] VITALS: BP 104/67
[2017-08-21] MEDS: LORazepam 2 MG TABLET PO PRN ×2 (03:44→19:16)
[2017-08-21] MEDS: OLANZapine 5 MG RAPDIS TABLET PO PRN (03:44)
[2017-08-21 05:51] VITALS: BP 106/70
[2017-08-21] MEDS: LEVOTHYROXINE SODIUM 25 MCG TABLET PO SCH (06:38)
[2017-08-21 08:15] VITALS: BP 106/61
[2017-08-21] MEDS: DiphenhydrAMINE HCL 25 MG CAPSULE PO SCH ×2 (08:16→15:58)
[2017-08-21] MEDS: LITHIUM CARBONATE 300 MG TABLET PO SCH ×3 (08:17→15:59)
[2017-08-21] MEDS: SERTRALINE HCL 50 MG TABLET PO SCH (08:18)
[2017-08-21] MEDS: MONTELUKAST SODIUM 10 MG TABLET PO SCH (08:18)
[2017-08-21] MEDS: OLANZapine 10 MG RAPDIS TABLET PO SCH ×2 (08:19→15:59)
[2017-08-21] MEDS: BACITRACIN 28.4 GM OINTMENT TP SCH ×2 (08:26→19:04)
[2017-08-21] MEDS: NICOTINE 14 MG/24 HOUR PATCH TD SCH (08:26)
[2017-08-21] MEDS ORDERED: LITHIUM CARBONATE 450 MG ER TABLET PO SCH (09:00)
[2017-08-21 16:27] VITALS: BP 105/72
[2017-08-21] MEDS: ZOLPIDEM TARTRATE 10 MG TABLET PO PRN (21:11)
[2017-08-22] MEDS: LEVOTHYROXINE SODIUM 25 MCG TABLET PO SCH (06:24)
[2017-08-22 08:30] VITALS: BP 108/60
[2017-08-22] MEDS: NICOTINE 14 MG/24 HOUR PATCH TD SCH (09:06)
[2017-08-22] MEDS: SERTRALINE HCL 50 MG TABLET PO SCH (09:06)
[2017-08-22] MEDS: LITHIUM CARBONATE 300 MG TABLET PO SCH ×3 (09:07→18:39)
[2017-08-22] MEDS: MONTELUKAST SODIUM 10 MG TABLET PO SCH (09:07)
[2017-08-22] MEDS: OLANZapine 10 MG RAPDIS TABLET PO SCH ×2 (09:07→18:39)
[2017-08-22] MEDS: DiphenhydrAMINE HCL 25 MG CAPSULE PO SCH ×2 (09:09→18:39)
[2017-08-22] MEDS: BACITRACIN 28.4 GM OINTMENT TP SCH ×2 (09:10→17:00)
[2017-08-22] MEDS: OLANZapine 5 MG RAPDIS TABLET PO PRN (20:00)
[2017-08-22] MEDS: LORazepam 2 MG TABLET PO PRN (20:36)
[2017-08-22 21:33] VITALS: BP 137/78
[2017-08-22] MEDS: ZOLPIDEM TARTRATE 10 MG TABLET PO PRN (23:08)
[2017-08-23] MEDS: LEVOTHYROXINE SODIUM 25 MCG TABLET PO SCH (06:57)
[2017-08-23 08:15] VITALS: BP 103/53
[2017-08-23] MEDS: SERTRALINE HCL 50 MG TABLET PO SCH ×2 (08:57→11:06)
[2017-08-23] MEDS: OLANZapine 10 MG RAPDIS TABLET PO SCH ×2 (08:57→16:48)
[2017-08-23] MEDS: DiphenhydrAMINE HCL 25 MG CAPSULE PO SCH ×3 (08:57→16:48)
[2017-08-23] MEDS: LITHIUM CARBONATE 300 MG TABLET PO SCH ×4 (08:58→16:48)
[2017-08-23] MEDS: MONTELUKAST SODIUM 10 MG TABLET PO SCH ×2 (08:58→11:06)
[2017-08-23] MEDS: NICOTINE 14 MG/24 HOUR PATCH TD SCH (08:59)
[2017-08-23] MEDS: BACITRACIN 28.4 GM OINTMENT TP SCH ×2 (09:00→17:00)
[2017-08-23] MEDS: LORazepam 2 MG TABLET PO PRN ×4 (09:02→21:06)
[2017-08-23] MEDS ORDERED: LORazepam 2 MG/ML VIAL IM ONE (09:45)
[2017-08-23] MEDS ORDERED: DiphenhydrAMINE HCL 50 MG/ML VIAL IM ONE (09:45)
[2017-08-23 21:20] VITALS: BP 110/79
[2017-08-24] MEDS: LEVOTHYROXINE SODIUM 25 MCG TABLET PO SCH (06:30)
[2017-08-24 08:46] VITALS: BP 106/70
[2017-08-24] MEDS: DiphenhydrAMINE HCL 25 MG CAPSULE PO SCH ×2 (09:11→17:11)
[2017-08-24] MEDS: BACITRACIN 28.4 GM OINTMENT TP SCH ×2 (09:12→17:00)
[2017-08-24] MEDS: OLANZapine 10 MG RAPDIS TABLET PO SCH ×2 (09:12→17:11)
[2017-08-24] MEDS: LITHIUM CARBONATE 300 MG TABLET PO SCH ×3 (09:13→17:11)
[2017-08-24] MEDS: SERTRALINE HCL 50 MG TABLET PO SCH (09:13)
[2017-08-24] MEDS: MONTELUKAST SODIUM 10 MG TABLET PO SCH (09:14)
[2017-08-24] MEDS: NICOTINE 14 MG/24 HOUR PATCH TD SCH (09:15)
[2017-08-24] MEDS: OLANZapine 5 MG RAPDIS TABLET PO PRN (13:12)
[2017-08-24 17:00] VITALS: BP 105/63
[2017-08-24] MEDS: ZOLPIDEM TARTRATE 10 MG TABLET PO PRN (20:30)
[2017-08-25] MEDS: LEVOTHYROXINE SODIUM 25 MCG TABLET PO SCH (07:01)
[2017-08-25] MEDS: MONTELUKAST SODIUM 10 MG TABLET PO SCH (08:21)
[2017-08-25] MEDS: SERTRALINE HCL 50 MG TABLET PO SCH (08:22)
[2017-08-25] MEDS: DiphenhydrAMINE HCL 25 MG CAPSULE PO SCH ×2 (08:22→16:04)
[2017-08-25] MEDS: LITHIUM CARBONATE 300 MG TABLET PO SCH ×3 (08:22→16:04)
[2017-08-25] MEDS: OLANZapine 10 MG RAPDIS TABLET PO SCH ×2 (08:22→16:04)
[2017-08-25] MEDS: NICOTINE 14 MG/24 HOUR PATCH TD SCH (08:24)
[2017-08-25 08:30] VITALS: BP 116/73
[2017-08-25] MEDS: BACITRACIN 28.4 GM OINTMENT TP SCH ×2 (09:00→19:43)
[2017-08-25 17:46] VITALS: BP 112/76
[2017-08-25] MEDS: ZOLPIDEM TARTRATE 10 MG TABLET PO PRN (20:45)
[2017-08-26] MEDS: LEVOTHYROXINE SODIUM 25 MCG TABLET PO SCH (06:39)
[2017-08-26] MEDS: DiphenhydrAMINE HCL 25 MG CAPSULE PO SCH ×2 (09:03→15:55)
[2017-08-26] MEDS: OLANZapine 10 MG RAPDIS TABLET PO SCH ×2 (09:03→15:55)
[2017-08-26] MEDS: LITHIUM CARBONATE 300 MG TABLET PO SCH ×3 (09:04→15:55)
[2017-08-26] MEDS: MONTELUKAST SODIUM 10 MG TABLET PO SCH (09:04)
[2017-08-26] MEDS: NICOTINE 14 MG/24 HOUR PATCH TD SCH (09:05)
[2017-08-26] MEDS: SERTRALINE HCL 50 MG TABLET PO SCH (09:05)
[2017-08-26] MEDS: BACITRACIN 28.4 GM OINTMENT TP SCH ×2 (09:06→15:55)
[2017-08-26] MEDS: LORazepam 2 MG TABLET PO PRN ×2 (10:18→19:20)
[2017-08-26] MEDS ORDERED: LACTULOSE 20 GM/30 ML SOLUTION UDCUP PO PRN (11:00)
[2017-08-26] MEDS ORDERED: BISACODYL 5 MG EC TABLET PO PRN (11:00)
[2017-08-26 12:36] VITALS: BP 109/63
[2017-08-26] MEDS: DOCUSATE SODIUM 250 MG CAPSULE PO SCH ×2 (12:48→15:55)
[2017-08-26 16:17] VITALS: BP 117/71
[2017-08-27 06:17] LABS: BASOPHILS % (AUTO) 0.6 % (0.0-2.0); EOSINOPHILS % (AUTO) 4.3 % (1.0-6.0); HEMOGLOBIN 14.1 g/dL (13.5-17.5); LYMPHOCYTES # (AUTO) 1.7 K/uL (1.0-4.8); LYMPHOCYTES % (AUTO) 25.8 % (22.0-44.0); MEAN CORPUSCULAR HEMOGLOBIN 32.2 pg (26.0-34.0); MEAN CORPUSCULAR HGB CONC 33.5 G/dL (31.0-37.0); MEAN CORPUSCULAR VOLUME 96 fL (80-100); MONOCYTES # (AUTO) 0.4 K/uL (0.1-1.0); MONOCYTES % (AUTO) 6.1 % (2.0-9.0); NEUTROPHILS # (AUTO) 4.1 K/uL (1.8-7.7); NEUTROPHILS % (AUTO) 63.2 % (40.0-70.0); PLATELET COUNT (AUTO) 142 K/uL (150-450); RED BLOOD CELL COUNT(AUTO) 4.37 MIL/uL (4.50-5.90); RED CELL DISTRIBUTION WIDTH 16.6 % (11.5-14.5)
[2017-08-27] MEDS: LEVOTHYROXINE SODIUM 25 MCG TABLET PO SCH (06:58)
[2017-08-27 07:03] LABS: ALANINE AMINOTRANSFERASE 31 U/L (12-78); ALBUMIN 3.4 g/dL (3.4-5.0); ALKALINE PHOSPHATASE 79 U/L (46-116); ANION GAP 5 mmol/L (8-16); ASPARTATE AMINOTRANSFERASE 17 U/L (15-37); BILIRUBIN,TOTAL 0.5 mg/dL (0.1-1.0); CALCIUM, TOTAL 9.3 mg/dL (8.8-10.5); CARBON DIOXIDE 30 mmol/L (22-29); CHLORIDE 104 mmol/L (98-107); CREATINE KINASE, TOTAL 64 U/L (39-308); CREATININE 1.11 mg/dL (0.60-1.30); FREE T4 (FREE THYROXINE) 0.79 ng/dL (0.76-1.46); GLOMERULAR FILTR. RATE CALC > 60 mL/min (>60); GLUCOSE,RANDOM 94 mg/dL (70-110); POTASSIUM 4.2 mmol/L (3.5-5.1); SODIUM SERUM 139 mmol/L (136-145); TOTAL PROTEIN, SERUM 7.1 g/dL (6.4-8.2); UREA NITROGEN, BLOOD 21 mg/dL (7-18)
[2017-08-27 08:05] VITALS: BP 127/68
[2017-08-27] MEDS: SERTRALINE HCL 50 MG TABLET PO SCH (08:22)
[2017-08-27] MEDS: NICOTINE 14 MG/24 HOUR PATCH TD SCH (08:22)
[2017-08-27] MEDS: MONTELUKAST SODIUM 10 MG TABLET PO SCH (08:23)
[2017-08-27] MEDS: LITHIUM CARBONATE 300 MG TABLET PO SCH ×3 (08:23→16:07)
[2017-08-27] MEDS: DiphenhydrAMINE HCL 25 MG CAPSULE PO SCH ×2 (08:23→16:07)
[2017-08-27] MEDS: BACITRACIN 28.4 GM OINTMENT TP SCH ×2 (08:24→16:08)
[2017-08-27] MEDS: OLANZapine 10 MG RAPDIS TABLET PO SCH ×2 (08:24→16:06)
[2017-08-27] MEDS: DOCUSATE SODIUM 250 MG CAPSULE PO SCH ×2 (08:24→16:07)
[2017-08-27] MEDS: LORazepam 2 MG TABLET PO PRN ×2 (12:23→20:02)
[2017-08-27 17:00] VITALS: BP 100/57
[2017-08-28] MEDS: LEVOTHYROXINE SODIUM 25 MCG TABLET PO SCH (06:45)
[2017-08-28] MEDS: IBUPROFEN 600 MG TABLET PO PRN (07:53)
[2017-08-28] MEDS: LORazepam 2 MG TABLET PO PRN ×2 (07:53→13:48)
[2017-08-28] MEDS: LITHIUM CARBONATE 300 MG TABLET PO SCH ×3 (07:53→17:40)
[2017-08-28] MEDS: DiphenhydrAMINE HCL 25 MG CAPSULE PO SCH ×2 (07:53→17:41)
[2017-08-28] MEDS: NICOTINE 14 MG/24 HOUR PATCH TD SCH (07:53)
[2017-08-28] MEDS: DOCUSATE SODIUM 250 MG CAPSULE PO SCH ×2 (07:53→17:41)
[2017-08-28] MEDS: OLANZapine 10 MG RAPDIS TABLET PO SCH ×2 (07:54→17:41)
[2017-08-28] MEDS: MONTELUKAST SODIUM 10 MG TABLET PO SCH (07:54)
[2017-08-28] MEDS: OLANZapine 5 MG RAPDIS TABLET PO PRN ×2 (07:54→13:48)
[2017-08-28] MEDS: SERTRALINE HCL 50 MG TABLET PO SCH (07:54)
[2017-08-28] MEDS: BACITRACIN 28.4 GM OINTMENT TP SCH ×2 (08:00→17:41)
[2017-08-28 08:53] VITALS: BP 105/71
[2017-08-28 16:14] VITALS: BP 109/78
[2017-08-29] MEDS: ZOLPIDEM TARTRATE 10 MG TABLET PO PRN (02:23)
[2017-08-29 02:26] VITALS: BP 119/73
[2017-08-29] MEDS: LEVOTHYROXINE SODIUM 25 MCG TABLET PO SCH (07:01)
[2017-08-29 08:10] VITALS: BP 120/70
[2017-08-29] MEDS: DiphenhydrAMINE HCL 25 MG CAPSULE PO SCH ×2 (08:17→17:34)
[2017-08-29] MEDS: LITHIUM CARBONATE 300 MG TABLET PO SCH ×3 (08:17→17:32)
[2017-08-29] MEDS: DOCUSATE SODIUM 250 MG CAPSULE PO SCH ×2 (08:17→17:34)
[2017-08-29] MEDS: OLANZapine 10 MG RAPDIS TABLET PO SCH ×2 (08:19→17:34)
[2017-08-29] MEDS: BACITRACIN 28.4 GM OINTMENT TP SCH ×2 (08:19→17:35)
[2017-08-29] MEDS: MONTELUKAST SODIUM 10 MG TABLET PO SCH (08:19)
[2017-08-29] MEDS: SERTRALINE HCL 50 MG TABLET PO SCH (08:20)
[2017-08-29] MEDS: NICOTINE 14 MG/24 HOUR PATCH TD SCH (08:30)
[2017-08-29] MEDS: LORazepam 2 MG TABLET PO PRN ×2 (09:29→22:09)
[2017-08-29] MEDS ORDERED: DiphenhydrAMINE HCL 50 MG/ML VIAL IM ONE (10:15)
[2017-08-29] MEDS ORDERED: LORazepam 2 MG/ML VIAL IM ONE (10:15)
[2017-08-29 17:56] VITALS: BP 126/79
[2017-08-29 22:05] VITALS: BP 117/87
[2017-08-29 23:00] VITALS: BP 117/87
[2017-08-30 05:03] VITALS: BP 103/68
[2017-08-30] MEDS: LEVOTHYROXINE SODIUM 25 MCG TABLET PO SCH (06:03)
[2017-08-30] MEDS: LITHIUM CARBONATE 300 MG TABLET PO SCH ×3 (08:27→16:10)
[2017-08-30] MEDS: SERTRALINE HCL 50 MG TABLET PO SCH (08:27)
[2017-08-30] MEDS: DiphenhydrAMINE HCL 25 MG CAPSULE PO SCH ×2 (08:27→16:10)
[2017-08-30] MEDS: OLANZapine 10 MG RAPDIS TABLET PO SCH ×2 (08:28→16:10)
[2017-08-30] MEDS: MONTELUKAST SODIUM 10 MG TABLET PO SCH (08:28)
[2017-08-30] MEDS: DOCUSATE SODIUM 250 MG CAPSULE PO SCH ×2 (08:28→16:10)
[2017-08-30] MEDS: BACITRACIN 28.4 GM OINTMENT TP SCH ×2 (08:29→16:11)
[2017-08-30 08:30] VITALS: BP 104/59
[2017-08-30] MEDS: NICOTINE 14 MG/24 HOUR PATCH TD SCH (08:39)
[2017-08-30] MEDS: OLANZapine 5 MG RAPDIS TABLET PO PRN ×2 (11:35→21:12)
[2017-08-30 17:11] VITALS: BP 115/69
[2017-08-30] MEDS: LORazepam 2 MG TABLET PO PRN (17:34)
[2017-08-31] MEDS: ZOLPIDEM TARTRATE 10 MG TABLET PO PRN (01:26)
[2017-08-31 01:28] VITALS: BP 95/73
[2017-08-31] MEDS: LEVOTHYROXINE SODIUM 25 MCG TABLET PO SCH (06:54)
[2017-08-31 08:10] VITALS: BP 91/53
[2017-08-31] MEDS: LITHIUM CARBONATE 300 MG TABLET PO SCH ×2 (08:13→13:22)
[2017-08-31] MEDS: DiphenhydrAMINE HCL 25 MG CAPSULE PO SCH ×2 (08:16→16:16)
[2017-08-31] MEDS: SERTRALINE HCL 50 MG TABLET PO SCH (08:16)
[2017-08-31] MEDS: MONTELUKAST SODIUM 10 MG TABLET PO SCH (08:17)
[2017-08-31] MEDS: OLANZapine 10 MG RAPDIS TABLET PO SCH ×2 (08:17→16:17)
[2017-08-31] MEDS: NICOTINE 14 MG/24 HOUR PATCH TD SCH (08:18)
[2017-08-31] MEDS: BACITRACIN 28.4 GM OINTMENT TP SCH ×2 (08:19→16:17)
[2017-08-31] MEDS: DOCUSATE SODIUM 250 MG CAPSULE PO SCH ×2 (08:20→16:16)
[2017-08-31] MEDS: LITHIUM CARBONATE 600 MG CAPSULE PO SCH (16:16)
[2017-08-31] MEDS: LORazepam 2 MG TABLET PO PRN (17:13)
[2017-08-31 18:29] VITALS: BP 130/77
[2017-09-01 01:45] VITALS: BP 108/76
[2017-09-01] MEDS: LEVOTHYROXINE SODIUM 25 MCG TABLET PO SCH (07:03)
[2017-09-01] MEDS: SERTRALINE HCL 50 MG TABLET PO SCH (08:17)
[2017-09-01] MEDS: MONTELUKAST SODIUM 10 MG TABLET PO SCH (08:17)
[2017-09-01] MEDS: OLANZapine 10 MG RAPDIS TABLET PO SCH ×3 (08:17→17:05)
[2017-09-01] MEDS: LITHIUM CARBONATE 600 MG CAPSULE PO SCH ×3 (08:17→16:10)
[2017-09-01] MEDS: DOCUSATE SODIUM 250 MG CAPSULE PO SCH ×2 (08:17→16:09)
[2017-09-01] MEDS: BACITRACIN 28.4 GM OINTMENT TP SCH ×2 (08:18→16:10)
[2017-09-01] MEDS: DiphenhydrAMINE HCL 25 MG CAPSULE PO SCH ×2 (08:18→16:10)
[2017-09-01] MEDS: NICOTINE 14 MG/24 HOUR PATCH TD SCH (08:18)
[2017-09-01 08:44] VITALS: BP 116/65
[2017-09-01 16:03] VITALS: BP 118/76
[2017-09-01] MEDS: LORazepam 2 MG TABLET PO PRN (17:00)
[2017-09-01] MEDS: ZOLPIDEM TARTRATE 10 MG TABLET PO PRN (22:07)
[2017-09-02] MEDS: LEVOTHYROXINE SODIUM 25 MCG TABLET PO SCH (06:54)
[2017-09-02] MEDS: NICOTINE 14 MG/24 HOUR PATCH TD SCH (08:27)
[2017-09-02] MEDS: DOCUSATE SODIUM 250 MG CAPSULE PO SCH ×2 (08:28→15:47)
[2017-09-02] MEDS: SERTRALINE HCL 50 MG TABLET PO SCH (08:28)
[2017-09-02] MEDS: LITHIUM CARBONATE 600 MG CAPSULE PO SCH ×3 (08:28→15:47)
[2017-09-02] MEDS: MONTELUKAST SODIUM 10 MG TABLET PO SCH (08:28)
[2017-09-02] MEDS: OLANZapine 10 MG RAPDIS TABLET PO SCH ×2 (08:28→15:47)
[2017-09-02] MEDS: DiphenhydrAMINE HCL 25 MG CAPSULE PO SCH ×2 (08:28→15:47)
[2017-09-02] MEDS: BACITRACIN 28.4 GM OINTMENT TP SCH ×2 (08:29→15:52)
[2017-09-02 08:38] VITALS: BP 95/64
[2017-09-02 16:15] VITALS: BP 105/60
[2017-09-02] MEDS: LORazepam 2 MG TABLET PO PRN (17:35)
[2017-09-02] MEDS: ZOLPIDEM TARTRATE 10 MG TABLET PO PRN (20:52)
[2017-09-03] MEDS: LORazepam 2 MG TABLET PO PRN (02:17)
[2017-09-03 02:20] VITALS: BP 104/65
[2017-09-03] MEDS: LEVOTHYROXINE SODIUM 25 MCG TABLET PO SCH (06:22)
[2017-09-03 08:16] VITALS: BP 108/65
[2017-09-03] MEDS: MONTELUKAST SODIUM 10 MG TABLET PO SCH (08:51)
[2017-09-03] MEDS: SERTRALINE HCL 50 MG TABLET PO SCH (08:51)
[2017-09-03] MEDS: DOCUSATE SODIUM 250 MG CAPSULE PO SCH ×2 (08:51→16:08)
[2017-09-03] MEDS: LITHIUM CARBONATE 600 MG CAPSULE PO SCH ×3 (08:51→16:08)
[2017-09-03] MEDS: DiphenhydrAMINE HCL 25 MG CAPSULE PO SCH ×2 (08:51→16:08)
[2017-09-03] MEDS: OLANZapine 10 MG RAPDIS TABLET PO SCH ×2 (08:52→16:08)
[2017-09-03] MEDS: BACITRACIN 28.4 GM OINTMENT TP SCH ×2 (08:52→16:08)
[2017-09-03] MEDS: NICOTINE 14 MG/24 HOUR PATCH TD SCH (08:56)
[2017-09-03 16:36] VITALS: BP 110/79
[2017-09-04] MEDS: LEVOTHYROXINE SODIUM 25 MCG TABLET PO SCH (07:07)
[2017-09-04] MEDS: SERTRALINE HCL 50 MG TABLET PO SCH (08:12)
[2017-09-04] MEDS: OLANZapine 10 MG RAPDIS TABLET PO SCH ×2 (08:12→15:51)
[2017-09-04] MEDS: BACITRACIN 28.4 GM OINTMENT TP SCH ×2 (08:12→15:51)
[2017-09-04] MEDS: LITHIUM CARBONATE 600 MG CAPSULE PO SCH ×3 (08:12→15:50)
[2017-09-04] MEDS: NICOTINE 14 MG/24 HOUR PATCH TD SCH (08:12)
[2017-09-04] MEDS: DOCUSATE SODIUM 250 MG CAPSULE PO SCH ×2 (08:12→15:50)
[2017-09-04] MEDS: MONTELUKAST SODIUM 10 MG TABLET PO SCH (08:12)
[2017-09-04] MEDS: DiphenhydrAMINE HCL 25 MG CAPSULE PO SCH ×2 (08:13→15:51)
[2017-09-04 08:49] VITALS: BP 111/75
[2017-09-04 17:00] VITALS: BP 111/70
[2017-09-04] MEDS: LORazepam 2 MG TABLET PO PRN (17:51)
[2017-09-04] MEDS: ZOLPIDEM TARTRATE 10 MG TABLET PO PRN (21:57)
[2017-09-05] MEDS: LEVOTHYROXINE SODIUM 25 MCG TABLET PO SCH (07:11)
[2017-09-05] MEDS: LITHIUM CARBONATE 600 MG CAPSULE PO SCH ×3 (08:32→16:45)
[2017-09-05] MEDS: DOCUSATE SODIUM 250 MG CAPSULE PO SCH ×2 (08:32→16:46)
[2017-09-05] MEDS: OLANZapine 10 MG RAPDIS TABLET PO SCH ×2 (08:32→16:45)
[2017-09-05] MEDS: DiphenhydrAMINE HCL 25 MG CAPSULE PO SCH ×2 (08:32→16:45)
[2017-09-05] MEDS: MONTELUKAST SODIUM 10 MG TABLET PO SCH (08:33)
[2017-09-05] MEDS: SERTRALINE HCL 50 MG TABLET PO SCH (08:33)
[2017-09-05] MEDS: NICOTINE 14 MG/24 HOUR PATCH TD SCH (08:34)
[2017-09-05 09:42] VITALS: BP 103/70
[2017-09-05] MEDS ORDERED: ZOLPIDEM TARTRATE 10 MG TABLET PO PRN (16:00)
[2017-09-05 16:48] VITALS: BP 102/60
[2017-09-05] MEDS: LORazepam 2 MG TABLET PO PRN (20:39)
[2017-09-06] MEDS: LEVOTHYROXINE SODIUM 25 MCG TABLET PO SCH (06:37)
[2017-09-06 08:15] VITALS: BP 93/57
[2017-09-06] MEDS: DiphenhydrAMINE HCL 25 MG CAPSULE PO SCH ×2 (08:18→16:10)
[2017-09-06] MEDS: OLANZapine 10 MG RAPDIS TABLET PO SCH ×2 (08:18→16:10)
[2017-09-06] MEDS: DOCUSATE SODIUM 250 MG CAPSULE PO SCH ×2 (08:19→16:10)
[2017-09-06] MEDS: LITHIUM CARBONATE 600 MG CAPSULE PO SCH ×3 (08:19→16:10)
[2017-09-06] MEDS: MONTELUKAST SODIUM 10 MG TABLET PO SCH (08:20)
[2017-09-06] MEDS: SERTRALINE HCL 50 MG TABLET PO SCH (08:20)
[2017-09-06] MEDS: NICOTINE 14 MG/24 HOUR PATCH TD SCH (08:21)
[2017-09-06 16:12] VITALS: BP 108/67
[2017-09-07 05:10] VITALS: BP 133/87
[2017-09-07] MEDS: OLANZapine 5 MG RAPDIS TABLET PO PRN (05:19)
[2017-09-07] MEDS: LEVOTHYROXINE SODIUM 25 MCG TABLET PO SCH (06:53)
[2017-09-07 06:54] VITALS: BP 104/70
[2017-09-07 08:15] VITALS: BP 93/61
[2017-09-07] MEDS: NICOTINE 14 MG/24 HOUR PATCH TD SCH (08:49)
[2017-09-07] MEDS: MONTELUKAST SODIUM 10 MG TABLET PO SCH (08:50)
[2017-09-07] MEDS: LITHIUM CARBONATE 600 MG CAPSULE PO SCH ×3 (08:50→16:00)
[2017-09-07] MEDS: SERTRALINE HCL 50 MG TABLET PO SCH (08:53)
[2017-09-07] MEDS: OLANZapine 10 MG RAPDIS TABLET PO SCH ×2 (08:57→16:00)
[2017-09-07] MEDS: DOCUSATE SODIUM 250 MG CAPSULE PO SCH ×2 (09:09→16:00)
[2017-09-07] MEDS: DiphenhydrAMINE HCL 25 MG CAPSULE PO SCH ×2 (09:09→16:00)
[2017-09-07] MEDS: LORazepam 2 MG TABLET PO PRN (12:58)
[2017-09-07 15:26] LABS: APPEARANCE,URINE CLEAR (CLEAR); BILIRUBIN,URINE NEGATIVE (NEGATIVE); GLUCOSE, URINE (UA) NEGATIVE (NEGATIVE); KETONES,URINE NEGATIVE (NEGATIVE); LEUKOCYTE ESTERASE ,URINE NEGATIVE (NEGATIVE); NITRATE,URINE NEGATIVE (NEGATIVE); OCCULT BLOOD,URINE NEGATIVE (NEGATIVE); PH,URINE 7.5 (5.0-8.0); PROTEIN,URINE NEGATIVE (NEGATIVE); UROBILINOGEN,URINE 0.2 mg/dL (<=1.0)
[2017-09-07 18:00] VITALS: BP 100/70
[2017-09-08 07:03] LABS: BASOPHILS # (AUTO) 0.03 K/uL (0.00-0.20); BASOPHILS % (AUTO) 0.4 % (0.0-2.0); EOSINOPHILS # (AUTO) 0.21 K/uL (0.00-0.70); EOSINOPHILS % (AUTO) 2.89 % (1.0-6.0); HEMATOCRIT 41.3 % (41-53); HEMOGLOBIN 13.8 g/dL (13.5-17.5); LYMPHOCYTES # (AUTO) 1.5 K/uL (1.0-4.8); LYMPHOCYTES % (AUTO) 20.6 % (22.0-44.0); MEAN CORPUSCULAR HEMOGLOBIN 31.7 pg (26.0-34.0); MEAN CORPUSCULAR HGB CONC 33.3 G/dL (31.0-37.0); MEAN CORPUSCULAR VOLUME 95 fL (80-100); MONOCYTES # (AUTO) 0.4 K/uL (0.1-1.0); MONOCYTES % (AUTO) 5.4 % (2.0-9.0); NEUTROPHILS # (AUTO) 5.1 K/uL (1.8-7.7); NEUTROPHILS % (AUTO) 70.7 % (40.0-70.0); PLATELET COUNT (AUTO) 172 K/uL (150-450); RED BLOOD CELL COUNT(AUTO) 4.34 MIL/uL (4.50-5.90); RED CELL DISTRIBUTION WIDTH 15.5 % (11.5-14.5)
[2017-09-08] MEDS: LEVOTHYROXINE SODIUM 25 MCG TABLET PO SCH (07:09)
[2017-09-08 07:17] LABS: ALANINE AMINOTRANSFERASE 31 U/L (12-78); ALBUMIN 3.4 g/dL (3.4-5.0); ALKALINE PHOSPHATASE 86 U/L (46-116); ANION GAP 5 mmol/L (8-16); ASPARTATE AMINOTRANSFERASE 26 U/L (15-37); BILIRUBIN,TOTAL 0.4 mg/dL (0.1-1.0); CARBON DIOXIDE 29 mmol/L (22-29); CHLORIDE 104 mmol/L (98-107); CREATININE 0.94 mg/dL (0.60-1.30); GLOMERULAR FILTR. RATE CALC > 60 mL/min (>60); GLUCOSE,RANDOM 82 mg/dL (70-110); SODIUM SERUM 138 mmol/L (136-145); TOTAL PROTEIN, SERUM 6.3 g/dL (6.4-8.2); UREA NITROGEN, BLOOD 18 mg/dL (7-18)
[2017-09-08] MEDS: DOCUSATE SODIUM 250 MG CAPSULE PO SCH ×2 (08:31→17:03)
[2017-09-08] MEDS: MONTELUKAST SODIUM 10 MG TABLET PO SCH (08:31)
[2017-09-08] MEDS: OLANZapine 10 MG RAPDIS TABLET PO SCH ×2 (08:31→17:02)
[2017-09-08] MEDS: DiphenhydrAMINE HCL 25 MG CAPSULE PO SCH ×2 (08:31→17:02)
[2017-09-08] MEDS: LITHIUM CARBONATE 600 MG CAPSULE PO SCH ×3 (08:32→17:02)
[2017-09-08] MEDS: SERTRALINE HCL 50 MG TABLET PO SCH (08:32)
[2017-09-08] MEDS: NICOTINE 14 MG/24 HOUR PATCH TD SCH (08:38)
[2017-09-08 10:10] VITALS: BP 113/75
[2017-09-08] MEDS: LORazepam 2 MG TABLET PO PRN (15:02)
[2017-09-09] MEDS: LEVOTHYROXINE SODIUM 25 MCG TABLET PO SCH (06:21)
[2017-09-09] MEDS: DOCUSATE SODIUM 250 MG CAPSULE PO SCH ×2 (08:17→16:46)
[2017-09-09] MEDS: OLANZapine 10 MG RAPDIS TABLET PO SCH ×2 (08:17→16:46)
[2017-09-09] MEDS: SERTRALINE HCL 50 MG TABLET PO SCH (08:17)
[2017-09-09] MEDS: DiphenhydrAMINE HCL 25 MG CAPSULE PO SCH ×2 (08:17→16:46)
[2017-09-09] MEDS: MONTELUKAST SODIUM 10 MG TABLET PO SCH (08:18)
[2017-09-09] MEDS: LITHIUM CARBONATE 600 MG CAPSULE PO SCH ×3 (08:18→16:46)
[2017-09-09] MEDS: NICOTINE 14 MG/24 HOUR PATCH TD SCH (08:19)
[2017-09-09 08:39] VITALS: BP 125/66
[2017-09-09 16:15] VITALS: BP 108/77
[2017-09-10 05:42] VITALS: BP 104/69
[2017-09-10] MEDS: LEVOTHYROXINE SODIUM 25 MCG TABLET PO SCH (06:28)
[2017-09-10] MEDS: DiphenhydrAMINE HCL 25 MG CAPSULE PO SCH ×2 (08:27→17:35)
[2017-09-10] MEDS: OLANZapine 10 MG RAPDIS TABLET PO SCH ×2 (08:27→17:36)
[2017-09-10] MEDS: SERTRALINE HCL 50 MG TABLET PO SCH (08:27)
[2017-09-10] MEDS: LITHIUM CARBONATE 600 MG CAPSULE PO SCH ×3 (08:27→17:36)
[2017-09-10] MEDS: NICOTINE 14 MG/24 HOUR PATCH TD SCH (08:27)
[2017-09-10] MEDS: DOCUSATE SODIUM 250 MG CAPSULE PO SCH ×2 (08:27→17:35)
[2017-09-10] MEDS: MONTELUKAST SODIUM 10 MG TABLET PO SCH (08:27)
[2017-09-10 09:23] VITALS: BP 102/71
[2017-09-10 16:37] VITALS: BP 93/58
[2017-09-11] MEDS: LEVOTHYROXINE SODIUM 50 MCG TABLET PO SCH (06:57)
[2017-09-11] MEDS: LITHIUM CARBONATE 600 MG CAPSULE PO SCH ×3 (09:17→16:16)
[2017-09-11] MEDS: DiphenhydrAMINE HCL 25 MG CAPSULE PO SCH ×2 (09:17→16:16)
[2017-09-11] MEDS: DOCUSATE SODIUM 250 MG CAPSULE PO SCH ×2 (09:17→16:17)
[2017-09-11] MEDS: SERTRALINE HCL 50 MG TABLET PO SCH (09:17)
[2017-09-11] MEDS: MONTELUKAST SODIUM 10 MG TABLET PO SCH (09:18)
[2017-09-11] MEDS: OLANZapine 10 MG RAPDIS TABLET PO SCH ×2 (09:18→16:17)
[2017-09-11] MEDS: NICOTINE 14 MG/24 HOUR PATCH TD SCH (09:18)
[2017-09-11 09:50] VITALS: BP 103/68
[2017-09-11 12:25] LABS: FREE T4 (FREE THYROXINE) 0.86 ng/dL (0.76-1.46); THYROID STIMULATING HORMONE 3.38 uIU/mL (0.36-3.74)
[2017-09-11 17:00] VITALS: BP 122/78
[2017-09-12 02:00] VITALS: BP 126/82
[2017-09-12] MEDS: OLANZapine 5 MG RAPDIS TABLET PO PRN (02:05)
[2017-09-12] MEDS: LORazepam 2 MG TABLET PO PRN (02:05)
[2017-09-12] MEDS: IBUPROFEN 600 MG TABLET PO PRN (02:05)
[2017-09-12] MEDS: LEVOTHYROXINE SODIUM 50 MCG TABLET PO SCH (06:37)
[2017-09-12] MEDS: OLANZapine 10 MG RAPDIS TABLET PO SCH ×2 (08:28→16:33)
[2017-09-12] MEDS: DOCUSATE SODIUM 250 MG CAPSULE PO SCH ×2 (08:28→16:33)
[2017-09-12] MEDS: DiphenhydrAMINE HCL 25 MG CAPSULE PO SCH ×2 (08:28→16:33)
[2017-09-12] MEDS: NICOTINE 14 MG/24 HOUR PATCH TD SCH (08:30)
[2017-09-12] MEDS: MONTELUKAST SODIUM 10 MG TABLET PO SCH (08:31)
[2017-09-12] MEDS: LITHIUM CARBONATE 600 MG CAPSULE PO SCH ×3 (08:31→16:33)
[2017-09-12] MEDS: SERTRALINE HCL 50 MG TABLET PO SCH (08:31)
[2017-09-12 08:36] VITALS: BP 113/53
[2017-09-12 16:17] VITALS: BP 104/50
[2017-09-13] MEDS: LEVOTHYROXINE SODIUM 50 MCG TABLET PO SCH (06:46)
[2017-09-13 07:40] LABS: FREE T4 (FREE THYROXINE) 0.69 ng/dL (0.76-1.46); THYROID STIMULATING HORMONE 6.03 uIU/mL (0.36-3.74)
[2017-09-13 08:18] VITALS: BP 90/52
[2017-09-13] MEDS: MONTELUKAST SODIUM 10 MG TABLET PO SCH (09:01)
[2017-09-13] MEDS: OLANZapine 10 MG RAPDIS TABLET PO SCH ×2 (09:04→18:15)
[2017-09-13] MEDS: SERTRALINE HCL 50 MG TABLET PO SCH (09:04)
[2017-09-13] MEDS: LITHIUM CARBONATE 600 MG CAPSULE PO SCH ×3 (09:04→18:15)
[2017-09-13] MEDS: DiphenhydrAMINE HCL 25 MG CAPSULE PO SCH ×2 (09:04→18:15)
[2017-09-13] MEDS: DOCUSATE SODIUM 250 MG CAPSULE PO SCH ×2 (09:04→17:00)
[2017-09-13] MEDS: NICOTINE 14 MG/24 HOUR PATCH TD SCH (09:11)
[2017-09-14] MEDS: LEVOTHYROXINE SODIUM 50 MCG TABLET PO SCH (06:37)
[2017-09-14 08:11] VITALS: BP 108/64
[2017-09-14] MEDS: DOCUSATE SODIUM 250 MG CAPSULE PO SCH ×2 (08:43→16:33)
[2017-09-14] MEDS: MONTELUKAST SODIUM 10 MG TABLET PO SCH (08:43)
[2017-09-14] MEDS: LITHIUM CARBONATE 600 MG CAPSULE PO SCH ×3 (08:43→16:33)
[2017-09-14] MEDS: OLANZapine 10 MG RAPDIS TABLET PO SCH ×2 (08:44→16:33)
[2017-09-14] MEDS: SERTRALINE HCL 50 MG TABLET PO SCH (08:44)
[2017-09-14] MEDS: NICOTINE 14 MG/24 HOUR PATCH TD SCH (08:54)
[2017-09-14] MEDS ORDERED: DiphenhydrAMINE HCL 25 MG CAPSULE PO SCH (09:00)
[2017-09-14] MEDS ORDERED: DiphenhydrAMINE HCL 25 MG CAPSULE PO ONE (09:00)
[2017-09-14] MEDS: DiphenhydrAMINE HCL 25 MG CAPSULE PO SCH (16:35)
[2017-09-14 19:20] VITALS: BP 102/58
[2017-09-15 06:30] VITALS: BP 145/78
[2017-09-15] MEDS: LORazepam 2 MG TABLET PO PRN (06:38)
[2017-09-15] MEDS: LEVOTHYROXINE SODIUM 50 MCG TABLET PO SCH (06:38)
[2017-09-15] MEDS: SERTRALINE HCL 50 MG TABLET PO SCH (08:24)
[2017-09-15] MEDS: OLANZapine 10 MG RAPDIS TABLET PO SCH ×2 (08:24→16:28)
[2017-09-15] MEDS: MONTELUKAST SODIUM 10 MG TABLET PO SCH (08:24)
[2017-09-15] MEDS: LITHIUM CARBONATE 600 MG CAPSULE PO SCH ×3 (08:24→16:27)
[2017-09-15] MEDS: DOCUSATE SODIUM 250 MG CAPSULE PO SCH ×2 (08:25→16:27)
[2017-09-15] MEDS: DiphenhydrAMINE HCL 25 MG CAPSULE PO SCH ×2 (08:25→16:27)
[2017-09-15 08:30] VITALS: BP 99/61
[2017-09-15] MEDS: NICOTINE 14 MG/24 HOUR PATCH TD SCH (11:57)
[2017-09-15 16:37] VITALS: BP 102/67
[2017-09-16] MEDS: LEVOTHYROXINE SODIUM 50 MCG TABLET PO SCH (06:43)
[2017-09-16 08:47] VITALS: BP 106/58
[2017-09-16] MEDS: DOCUSATE SODIUM 250 MG CAPSULE PO SCH ×2 (09:50→16:14)
[2017-09-16] MEDS: DiphenhydrAMINE HCL 25 MG CAPSULE PO SCH ×2 (09:50→16:14)
[2017-09-16] MEDS: OLANZapine 10 MG RAPDIS TABLET PO SCH ×2 (09:50→16:14)
[2017-09-16] MEDS: SERTRALINE HCL 50 MG TABLET PO SCH (09:51)
[2017-09-16] MEDS: LITHIUM CARBONATE 600 MG CAPSULE PO SCH ×3 (09:51→16:14)
[2017-09-16] MEDS: MONTELUKAST SODIUM 10 MG TABLET PO SCH (09:51)
[2017-09-16] MEDS: NICOTINE 14 MG/24 HOUR PATCH TD SCH (09:59)
[2017-09-16] MEDS: RisperiDONE 1 MG TABLET PO SCH (18:33)
[2017-09-16 20:18] VITALS: BP 101/58
[2017-09-17 01:58] VITALS: BP 104/73
[2017-09-17] MEDS: LORazepam 2 MG TABLET PO PRN (02:02)
[2017-09-17] MEDS: LEVOTHYROXINE SODIUM 50 MCG TABLET PO SCH (06:58)
[2017-09-17 08:58] VITALS: BP 84/52
[2017-09-17] MEDS: NICOTINE 14 MG/24 HOUR PATCH TD SCH (09:00)
[2017-09-17] MEDS: SERTRALINE HCL 50 MG TABLET PO SCH (09:36)
[2017-09-17] MEDS: OLANZapine 10 MG RAPDIS TABLET PO SCH ×2 (09:36→17:04)
[2017-09-17] MEDS: DOCUSATE SODIUM 250 MG CAPSULE PO SCH ×2 (09:36→17:04)
[2017-09-17] MEDS: LITHIUM CARBONATE 600 MG CAPSULE PO SCH ×3 (09:36→17:04)
[2017-09-17] MEDS: DiphenhydrAMINE HCL 25 MG CAPSULE PO SCH ×2 (09:36→17:04)
[2017-09-17] MEDS: RisperiDONE 1 MG TABLET PO SCH ×2 (09:36→17:04)
[2017-09-17] MEDS: MONTELUKAST SODIUM 10 MG TABLET PO SCH (09:37)
[2017-09-17 16:13] VITALS: BP 95/64
[2017-09-18] MEDS: LEVOTHYROXINE SODIUM 50 MCG TABLET PO SCH (06:49)
[2017-09-18 08:26] VITALS: BP 101/63
[2017-09-18] MEDS: DiphenhydrAMINE HCL 25 MG CAPSULE PO SCH ×2 (08:42→16:17)
[2017-09-18] MEDS: OLANZapine 10 MG RAPDIS TABLET PO SCH ×2 (08:43→16:16)
[2017-09-18] MEDS: RisperiDONE 2 MG TABLET PO SCH ×2 (08:43→16:16)
[2017-09-18] MEDS: DOCUSATE SODIUM 250 MG CAPSULE PO SCH ×2 (08:43→16:16)
[2017-09-18] MEDS: LITHIUM CARBONATE 600 MG CAPSULE PO SCH ×3 (08:43→16:16)
[2017-09-18] MEDS: MONTELUKAST SODIUM 10 MG TABLET PO SCH (08:44)
[2017-09-18] MEDS: SERTRALINE HCL 50 MG TABLET PO SCH (08:44)
[2017-09-18] MEDS: NICOTINE 14 MG/24 HOUR PATCH TD SCH (08:45)
[2017-09-18] MEDS: LORazepam 2 MG TABLET PO PRN (09:12)
[2017-09-18 17:26] VITALS: BP 92/60
[2017-09-19 01:38] VITALS: BP 100/63
[2017-09-19] MEDS: LEVOTHYROXINE SODIUM 50 MCG TABLET PO SCH (07:08)
[2017-09-19] MEDS: NICOTINE 14 MG/24 HOUR PATCH TD SCH (08:04)
[2017-09-19] MEDS: OLANZapine 10 MG RAPDIS TABLET PO SCH (08:05)
[2017-09-19] MEDS: LITHIUM CARBONATE 600 MG CAPSULE PO SCH ×2 (08:05→12:17)
[2017-09-19] MEDS: DOCUSATE SODIUM 250 MG CAPSULE PO SCH (08:05)
[2017-09-19] MEDS: SERTRALINE HCL 50 MG TABLET PO SCH (08:05)
[2017-09-19] MEDS: MONTELUKAST SODIUM 10 MG TABLET PO SCH (08:05)
[2017-09-19] MEDS: DiphenhydrAMINE HCL 25 MG CAPSULE PO SCH (08:05)
[2017-09-19] MEDS ORDERED: RisperiDONE 3 MG TABLET PO SCH (09:00)
[2017-09-19 09:08] VITALS: BP 116/96
[2017-09-19] MEDS ORDERED: DIPH25 PO (12:20)
[2017-09-19] MEDS ORDERED: OLAN10TA6 PO (12:21)
[2017-09-19] MEDS ORDERED: LITH600 PO (12:21)
[2017-09-19] MEDS ORDERED: RISP3 PO (12:21)
[2017-09-19] MEDS ORDERED: DOCU250C91 PO (12:25)
[2017-09-19] MEDS ORDERED: LEVO50TA11 PO (12:26)
[2017-09-19] MEDS ORDERED: MONT10TA21 PO (12:26)
== END 2017-09-19 15:40 | disposition home or self-care (01) | DRG 885 ==
LOC: EMS 17:20 → 3EX 19:57
PROVIDERS: ADMIT Psychiatry & Neurology Psychiatry; ATTEND Psychiatry & Neurology Psychiatry
DX: F25.0 Schizoaffective disorder, bipolar type (principal); G93.40 Encephalopathy, unspecified; I95.9 Hypotension, unspecified; D69.6 Thrombocytopenia, unspecified; E88.09 Other disorders of plasma-protein metabolism, not elsewhere classified; Z91.19 Patient's noncompliance with other medical treatment and regimen; D64.9 Anemia, unspecified; W19.XXXA Unspecified fall, initial encounter; E03.9 Hypothyroidism, unspecified; F41.9 Anxiety disorder, unspecified; S40.011A Contusion of right shoulder, initial encounter; J44.9 Chronic obstructive pulmonary disease, unspecified; K21.9 Gastro-esophageal reflux disease without esophagitis; K59.00 Constipation, unspecified; N40.0 Benign prostatic hyperplasia without lower urinary tract symptoms; F17.200 Nicotine dependence, unspecified, uncomplicated; R82.4 Acetonuria; S80.00XA Contusion of unspecified knee, initial encounter; R26.9 Unspecified abnormalities of gait and mobility; Z79.899 Other long term (current) drug therapy; Y93.89 Activity, other specified; Y92.89 Other specified places as the place of occurrence of the external cause; Z22.322 Carrier or suspected carrier of Methicillin resistant Staphylococcus aureus; Z88.8 Allergy status to other drugs, medicaments and biological substances
CPT/HCPCS: 82962; 83735; 84439; 84443; 87081; 99285; G0480; J1200; J2060; J3230; J3486

== ENCOUNTER 2020-10-18 18:38 | Emergency (ER) | payer MEDICARE, MEDICAID ==
[~2020-10-18] VITALS: Ht 170.2 cm; Wt 71.4 kg
[~2020-10-18 18:38] MED LIST changes: -DIVA500T69 PO; +DOCU-350 PO; +LEVO50TA11 PO; +LITH600 PO; +MONT-35 PO; -MUPI1OIN4 NS; +OLAN10TA6 PO; -PALI6 PO; +RISP3TAB35 PO
[2020-10-18] MEDS ORDERED: OLANZapine 5 MG RAPDIS TABLET PO ONE (20:15)
[2020-10-18] MEDS ORDERED: DiphenhydrAMINE HCL 25 MG CAPSULE PO ONE (20:15)
[2020-10-18] MEDS ORDERED: LORazepam 2 MG/ML VIAL IM ONE (20:45)
[2020-10-18 22:06] VITALS: BP 140/88
== END 2020-10-18 22:11 | disposition home or self-care (01) ==
LOC: EMS 18:38
DX: F20.9 Schizophrenia, unspecified (principal); I10 Essential (primary) hypertension; E78.00 Pure hypercholesterolemia, unspecified; K21.9 Gastro-esophageal reflux disease without esophagitis; J45.909 Unspecified asthma, uncomplicated; F17.210 Nicotine dependence, cigarettes, uncomplicated; Z88.8 Allergy status to other drugs, medicaments and biological substances; Z79.899 Other long term (current) drug therapy
CPT/HCPCS: 96372; 99284; J2060